=== PATIENT | female | born 1940 | race Two or more races ===

== ENCOUNTER → 2024-12-05 | Outpatient (CLI) | payer MEDICARE, MEDICAID, SELFPAY ==
--- NOTE | 2024-12-05 15:07 | XR_ITS ---
Examination: PA lateral chest 2 views TECHNIQUE: Upright PA lateral chest 2 views Exam date and time: December 05, 2024 1517 hours Comparison October 26, 2022 INDICATIONS: Coughing beginning 3 days ago FINDINGS: Retrocardiac gastric hernia Mild prominence left ventricle No lobar pneumonia Prominent osteopenia IMPRESSION: No lobar pneumonia
[2024-12-05 16:03] LABS: Basophils % (Auto) 0 % (0-2.5); Eosinophils # (Auto) 0.3 Thou/mm3 (0.0-0.5); Eosinophils % (Auto) 3 % (0-10); Hematocrit 33.9 % (36.0-46.0); Hemoglobin 11.6 g/dL (12.0-16.0); Immature Granulocytes % (Auto) 0 % (0-0); Immature Granulocytes Auto 0.03 Thou/mm3 (0.00-0.00); Lymphocytes # (Auto) 3.1 Thou/mm3 (1.0-4.8); Lymphocytes % (Auto) 31 % (10-50); Mean Corpuscular HGB Conc 34.2 g/dl (31.0-37.0); Mean Corpuscular Hemoglobin 31.7 pg (25.0-35.0); Mean Corpuscular Volume 93 fL (80-100); Monocytes # (Auto) 0.9 Thou/mm3 (0.0-0.8); Monocytes % (Auto) 9 % (0-12); Neutrophils # (Auto) 5.4 Thou/mm3 (1.8-7.7); Neutrophils % (Auto) 56 % (37-80); Nucleated Red Blood Cell % 0 /100 WBC (0); Platelet Count 146 Thou/mm3 (140-440); RDW Standard Deviation 57.1 fL (36.4-46.3); Red Blood Count 3.66 Miln/mm3 (4.00-5.20); White Blood Count 9.7 Thou/mm3 (3.6-11.0)
[2024-12-05 16:27] LABS: Alanine Aminotransferase 91 U/L (10-49); Albumin, Serum 3.7 gm/dL (3.4-4.8); Albumin/Globulin Ratio 1.3 (1.2-2.2); Alkaline Phosphatase 117 U/L (46-116); Anion Gap 11 (7-16); Aspartate Amino Transferase 145 U/L (0-34); BUN/Creatinine Ratio 24 Ratio (12-20); Bilirubin,Total 0.6 mg/dL (0.3-1.2); Blood Urea Nitrogen 48 mg/dL (9-23); Calcium 9.7 mg/dL (8.3-10.6); Calcium (Corrected) 9.9 mg/dL (8.5-10.1); Carbon Dioxide 26.9 mMol/L (20.0-31.0); Chloride 102 mMol/L (98-107); Globulin 2.9 gm/dL (2.3-3.5); Glucose 120 mg/dL (74-106); Osmolality,Calculated 293 (275-295); Sodium 140 mMol/L (136-145); Total Protein 6.6 gm/dL (5.7-8.2); eGFR 24 See Note
[2024-12-05 16:31] LABS: Ferritin 50 ng/mL (7.3-270.7); Iron 75 mcg/dL (50-170); Percent Iron Saturation 21 % (20-55); Total Iron Binding Capacity 352 mcg/dL (250-425); Unsaturated Iron Binding 277 (225-295)
[2024-12-05 16:35] LABS: B-Type Natriuretic Peptide 53 pg/mL (0-100)
[2024-12-05 17:05] LABS: Hepatitis A Antibody IgM Non Reactive (Non React); Hepatitis B Core Antibody IgM Non Reactive (Non React); Hepatitis B Surface Antigen Non Reactive (Non React); Hepatitis C Antibody Non Reactive (Non React)
== END | disposition home or self-care (01) ==
LOC: CDIM 14:57 → COPL 15:23
PROVIDERS: PCP Internal Medicine; Referring Provider Internal Medicine; Visit Provider Internal Medicine
DX: J06.9 Acute upper respiratory infection, unspecified (principal); R60.9 Edema, unspecified; D64.9 Anemia, unspecified; R74.01 Elevation of levels of liver transaminase levels
CPT/HCPCS: 36415; 71046; 80053; 80074; 82728; 83540; 83550; 83880; 85025

== ENCOUNTER → 2024-12-09 | Outpatient (CLI) | payer MEDICARE, MEDICAID, SELFPAY ==
--- NOTE | 2024-12-09 15:28 | XR_ITS ---
Examination: Abdomen sonogram, complete Date and time of exam: December 09, 2024 1606 hours INDICATIONS: Pancreatic head 3.5 cm on ultrasound 05/23/2024. Technique: Multiple real-time grayscale transabdominal sonographic images of the abdomen have been obtained. Findings: Pancreatic head 3.8 cm Cholelithiasis, no gallbladder wall edema Normal common bile duct Liver 17 cm lobular contour of fatty infiltration Normal hepatopedal portal venous flow Patent IVC Right kidney 8.5 cm in the cortex 1.2 cm Left kidney 8.5 cm renal cortex 1.5 cm Mild bilateral renal parenchymal scar formation Spleen 10.1 cm IMPRESSION: Pancreatic head measures 3.8 cm, suggest continued follow-up MRI abdomen pancreas pre and post contrast to compare with the July 10, 2024 exam
== END | disposition home or self-care (01) ==
LOC: SDIM 15:15
PROVIDERS: PCP Internal Medicine; Referring Provider Internal Medicine; Visit Provider Internal Medicine
DX: R93.2 Abnormal findings on diagnostic imaging of liver and biliary tract (principal)
CPT/HCPCS: 76700

== ENCOUNTER 2025-01-07 14:50 | Inpatient (IN) | payer MEDICARE, MEDICAID, SELFPAY ==
[2025-01-07 14:51] VITALS: BP 134/67; PULSE 69; RESP 18; TEMP 37.1; O2SAT 99; BMI 30.7
[2025-01-07 14:56] VITALS: BP 165/73; PULSE 71; RESP 24; TEMP 36.6; O2SAT 99
--- NOTE | 2025-01-07 15:13 | EKG_ITS ---
[facility] Test Date: 2025-01-07 Pat Name: ASIYA LANG Department: Room: - Gender: Female Geometry Tutor: : 1940 Requested By: Michelle Baumann Order Number: [id number] Reading MD: Michelle Baumann Measurements Intervals [place] Rate: 60 P: 38 [place]: 177 QRS: 37 QRSD: 144 T: 15 QT: 448 QTc: 451 Interpretive Statements SINUS RHYTHM INDETERMINATE AXIS RIGHT BUNDLE BRANCH BLOCK [120+ ms QRS DURATION, UPRIGHT V1, 40+ ms S IN I/aVL/V4/V5/V6] Compared to ECG 03/13/2019 09:09:35 Indeterminate axis now present Sinus bradycardia no longer present /store/S0/[id number]
--- NOTE | 2025-01-07 15:13 | XR_ITS ---
Examination: PA lateral chest 2 views TECHNIQUE: Upright PA lateral chest 2 views Exam date and time: January 07, 2025 1544 hours INDICATIONS: Chest pain today shortness of breath FINDINGS: No significant cardiac enlargement Retrocardiac gastric hernia Moderate vascular congestion No lobar pneumonia or alexandru pulmonary edema IMPRESSION: Moderate vascular congestion
--- NOTE | 2025-01-07 15:13 | PD.EDRME ---
Rapid Medical Screening Exam RME Arrival date/time: 01/07/25 14:50 84-year-old that comes from the support with complaints of chest pain and shortness of breath. Patient has a history of chronic kidney disease, CVA, diabetes, patient comes in today with complaints of shortness of breath and bilateral leg edema. patient was sent because she has crackles lung bases.. I have greeted and performed a focused initial assessment of this patient. Initial appropriate labs ordered at this time. A comprehensive ED assessment and evaluation of the patient and analysis of all test and completion of medical decision making process will be conducted by additional ED provider. Chief Complaint: Shortness of Breath/Dyspnea Time Seen by Provider: 01/07/25 14:58 Vital signs: Vital Signs Temperature 98.7 F 01/07/25 14:51 Pulse Rate 69 01/07/25 14:51 Respiratory Rate 18 01/07/25 14:51 Blood Pressure 134/67 H 01/07/25 14:51 Pulse Oximetry (%) 99 01/07/25 14:51 Oxygen Delivery Method Room Air 01/07/25 14:51
[2025-01-07 16:13] LABS: Basophils % (Auto) 1 % (0-2.5); Eosinophils # (Auto) 0.1 Thou/mm3 (0.0-0.5); Eosinophils % (Auto) 2 % (0-10); Hematocrit 35.4 % (36.0-46.0); Hemoglobin 12.1 g/dL (12.0-16.0); Immature Granulocytes % (Auto) 0 % (0-0); Immature Granulocytes Auto 0.01 Thou/mm3 (0.00-0.00); Lymphocytes # (Auto) 2.1 Thou/mm3 (1.0-4.8); Lymphocytes % (Auto) 32 % (10-50); Mean Corpuscular HGB Conc 34.2 g/dl (31.0-37.0); Mean Corpuscular Volume 94 fL (80-100); Monocytes # (Auto) 0.7 Thou/mm3 (0.0-0.8); Monocytes % (Auto) 11 % (0-12); Neutrophils # (Auto) 3.6 Thou/mm3 (1.8-7.7); Neutrophils % (Auto) 55 % (37-80); Nucleated Red Blood Cell % 0 /100 WBC (0); Platelet Count 152 Thou/mm3 (140-440); RDW Standard Deviation 56.6 fL (36.4-46.3); Red Blood Count 3.78 Miln/mm3 (4.00-5.20); White Blood Count 6.5 Thou/mm3 (3.6-11.0)
[2025-01-07 16:13] LABS: Collection Type, Urine Voided
[2025-01-07 16:35] LABS: Bilirubin,Urine Negative (Negative); Blood,Urine Negative (Negative); Clarity,Urine Clear (Clear/Hazy); Color,Urine Lt-Yellow (Lt Yel-Yel); Culture Indicated,Urine Not Indicated; Glucose, Urine 3+ (Negative); Ketones,Urine Negative (Negative); Leukocyte Esterase,Urine Negative (Negative); Nitrite,Urine Negative (Negative); Protein,Urine Negative (Neg - Trace); RBC,Urine < 1 /hpf (0-3); Squamous Epithelial Cell,Urine 1 /hpf (0-5); Urobilinogen,Urine Negative mg/dL (0.0-1.0); WBC,Urine 1 /hpf (0-5)
[2025-01-07 16:36] LABS: B-Type Natriuretic Peptide 41 pg/mL (0-100)
[2025-01-07 16:37] LABS: Alanine Aminotransferase 85 U/L (10-49); Albumin, Serum 4.1 gm/dL (3.4-4.8); Albumin/Globulin Ratio 1.2 (1.2-2.2); Alkaline Phosphatase 123 U/L (46-116); Anion Gap 11 (7-16); Aspartate Amino Transferase 138 U/L (0-34); BUN/Creatinine Ratio 28 Ratio (12-20); Bilirubin,Total 0.7 mg/dL (0.3-1.2); Blood Urea Nitrogen 58 mg/dL (9-23); Calcium 9.6 mg/dL (8.3-10.6); Calcium (Corrected) 9.6 mg/dL (8.5-10.1); Carbon Dioxide 23.9 mMol/L (20.0-31.0); Chloride 104 mMol/L (98-107); Creatinine (Component) 2.1 mg/dL (0.6-1.3); Estimated Creatinine Clearance 19.7 mL/min (>60); Globulin 3.3 gm/dL (2.3-3.5); Glucose 166 mg/dL (74-106); Osmolality,Calculated 297 (275-295); Potassium 3.8 mMol/L (3.4-5.1); Sodium 139 mMol/L (136-145); Total Protein 7.4 gm/dL (5.7-8.2); Troponin I < 0.020 ng/mL (0.0-0.045); eGFR 23 See Note
[2025-01-07 19:20] VITALS: BP 137/68; PULSE 61; RESP 20; TEMP 36.6; O2SAT 98
--- NOTE | 2025-01-07 20:35 | PD.EDADULT ---
ED General RME/HPI General Chief complaint: Shortness of Breath/Dyspnea Stated complaint: SOB AND DIFF. BREATHING SENT BY PMD Time Seen by Provider: 01/07/25 14:58 Arrival date/time: 01/07/25 14:50 CC: Chronic shortness of breath CKD and lower extremity edema. Patient was referred by her PCP because of her lower leg edema. RME / HPI RME / HPI narrative: 01/07/25 14:50 84-year-old that comes from the support with complaints of chest pain and shortness of breath. Patient has a history of chronic kidney disease, CVA, diabetes, patient comes in today with complaints of shortness of breath and bilateral leg edema. patient was sent because she has crackles lung bases.. I have greeted and performed a focused initial assessment of this patient. Initial appropriate labs ordered at this time. A comprehensive ED assessment and evaluation of the patient and analysis of all test and completion of medical decision making process will be conducted by additional ED provider. Related Data Home Medications ?Medication ?Instructions ?Recorded ?Confirmed alendronate 70 mg effervescent 70 mg PO QWEEK 02/21/18 04/09/21 tablet amlodipine 10 mg tablet 10 mg PO QDAY 02/21/18 04/09/21 pantoprazole 40 mg tablet,delayed 40 mg PO QDAY 02/21/18 04/09/21 release aspirin 325 mg tablet,delayed 325 mg PO QDAY 06/25/18 04/09/21 release simvastatin 40 mg tablet 1 tab PO HS 06/25/18 04/09/21 linagliptin 5 mg tablet (Tradjenta) 5 mg PO QDAY 03/13/19 04/09/21 allopurinol 100 mg tablet 100 mg PO QDAY 04/09/21 04/09/21 calcifediol 30 mcg capsule,24 30 mcg PO QDAY 04/09/21 04/09/21 hr,extended release (Rayaldee) hydralazine 50 mg tablet 50 mg PO TID 04/09/21 04/09/21 insulin human U-100 NPH-regulr 32 unit subcut QMORNING 04/09/21 04/09/21 70-30 mix 100 unit/mL subcutaneous susp (Novolin 70/30 U-100 Insulin) lisinopril 10 mg tablet 10 mg PO QDAY 04/09/21 04/09/21 Allergies Allergy/AdvReac Type Severity Reaction Status Date / Time No Known Allergies Allergy Verified 01/07/25 14:54 Course Course Course Narrative: Patient has a steadily rising BUN and creatinine, with moderate vascular congestion and concerned about giving her diuretics for her shortness of breath while still having the renal impairment. Patient's case discussed with Dr. William Peters, Dr. Mina who came down and assessed the patient in the emergency room and agreed accept the patient for admission. Patient is in agreement with this plan Quality Measures none Orders Category Date Time Status EKG (ED ONLY) *Do not use* NOW Care 01/07/25 15:13 Completed EKG (ED Only) Stat Exams 01/07/25 15:13 Draft XR chest 2V Stat Exams 01/07/25 15:13 Completed BNP [B-Type Natriuretic Peptide] Stat Lab 01/07/25 15:51 Completed CBC Stat Lab 01/07/25 15:51 Completed Comprehensive Metabolic Panel Stat Lab 01/07/25 15:51 Completed Troponin I Stat Lab 01/07/25 15:51 Completed Urinalysis, C/S if Indicated Stat Lab 01/07/25 16:01 Completed Vital Signs Vital signs: Vital Signs Temperature 98.7 F 01/07/25 14:51 Pulse Rate 69 01/07/25 14:51 Respiratory Rate 18 01/07/25 14:51 Blood Pressure 134/67 H 01/07/25 14:51 Pulse Oximetry (%) 99 01/07/25 14:51 Oxygen Delivery Method Room Air 01/07/25 14:51 Discharge Plan Plan Patient Disposition: Other Care w/in Hosp ([facility]) Patient condition on transfer: Stable Prescriptions/Referrals Prescriptions/Med Rec: No Action amlodipine 10 mg Tablet 10 mg PO QDAY pantoprazole 40 mg Tablet,Delayed Release (Dr/Ec) 40 mg PO QDAY alendronate 70 mg Tablet, Effervescent 70 mg PO QWEEK hydralazine 50 mg tablet 50 mg PO TID lisinopril 10 mg tablet 10 mg PO QDAY Rayaldee 30 mcg capsule,extended release 24 hr 30 mcg PO QDAY allopurinol 100 mg tablet 100 mg PO QDAY Novolin 70/30 U-100 Insulin 100 unit/mL (70-30) suspension 32 unit SUBCUT QMORNING Patient Comments: inject 32 units subcutaneously twice a day simvastatin 40 mg Tablet 1 tab PO HS aspirin 325 mg Tablet,Delayed Release (Dr/Ec) 325 mg PO QDAY Tradjenta 5 mg Tablet 5 mg PO QDAY Referrals: Bina Ames MD [Primary Care Provider] - In 1 week Problem List Clinical Impression: Breath shortness, MORTEZA (acute kidney injury) Patient/Caregiver Discharge Instructions Print Language: Spanish Stand Alone Forms: Trudi Award Info., Patient Portal Info Letter PA/TOPPIECE CUTTER Supervising Physician PA/TOPPIECE CUTTER Supervising Physician: Bayron Whitney ENP [facility] Labs Lab(s) Interpretation(s): CBC shows no acute leukocytosis H&H of 12.1 and 35.4 respectively no thrombocytopenia CMP shows no electrolyte imbalances BUN 58 creatinine 2.1 glucose of 166. T. bili at 0.7 Transaminitis's are mildly elevated. Troponin is negative BNP is negative Urine is 3+ glucose otherwise negative for any acute finding. Imaging Imaging Interpretation(s): Chest x-ray shows moderate vascular congestion.
--- NOTE | 2025-01-07 21:12 | PD.RESHP ---
Documentation for date of: 01/07/25 HPI History of Present Illness History of present illness: Patient is a 84 year old female with PMH of CVA, DM2, HTN who was referred to the ER by her PCP for shortness of breath. Patient endores SOB since COVID started in November 2019. Dyspnea is worse on exertion and limits the distance she can walk. Associated with bilateral lower extremity swelling which started around the same time, and pleuritic chest pain. Endorses some cough with yellow sputum in the morning. Endorses chronic stress incontinence. Denies fever, nausea, vomiting, stomach pain, diarrhea, constipation. Patient saw her prior authorization nurse Dr. Morales 1 month ago and was told her kidney function was doing okay. Patient saw her PCP Dr. Glass today and was recommended to go the ER for her shortness of breath. PMH: CVA, DM2, HTN PSH: total hysterectomy, bilateral knee repair SH: denies smoking, illicit drug use, alcohol use. Uses walker at baseline. PCP: Dr. Glass Grievance And Appeals Coordinator: Dr. Morales Presenting vitals stable. Patient able to talk in full sentences without acute distress though she does look short of breath. She is saturating on room air. Labs significant for elevated creatinine at 2.1 which is double of her previous level from May. UA shows glucosuria. CXR shows moderate vascular congestion. EKG shows sinus rhythm. Review of Systems Review of Systems Systems Reviewed: All systems reviewed, normal except as documented Exam Vital Signs Temp Pulse Resp BP Pulse Ox O2 Del Method 97.8 F 61 20 137/68 H 98 Room Air 01/07/25 19:20 01/07/25 19:20 01/07/25 19:20 01/07/25 19:20 01/07/25 19:20 01/07/25 19:20 Narrative Exam Constitutional: Pleasant elderly female, no acute distress. HEENT: NCAT. Vision grossly intact. Respiratory: CTAB bilaterally. No rales, ronchi, wheezing, crackles appreciated. Good airway entry bilaterally. Cardiac: RRR. Abdomen: Non-distended. MSK: B/L LE Edema 2-3+ Skin: Warm, dry, intact. Neuro: Motor and sensation grossly intact. Results: Labs 01/07/25 15:51 01/07/25 15:51 Labs: Short CBC 01/07/25 Range/Units 15:51 WBC 6.5 (3.6-11.0) Thou/mm3 Hgb 12.1 (12.0-16.0) g/dL Hct 35.4 L (36.0-46.0) % Plt Count 152 (140-440) Thou/mm3 BMP 01/07/25 15:51 Sodium 139 Potassium 3.8 Chloride 104 Carbon Dioxide 23.9 BUN 58 H Creatinine 2.1 H Glucose 166 H Calcium 9.6 Cardiac Enzymes 01/07/25 Range/Units 15:51 Troponin I < 0.020 (0.0-0.045) ng/mL Liver Function 01/07/25 Range/Units 15:51 Total Bilirubin 0.7 (0.3-1.2) mg/dL AST 138 H (0-34) U/L ALT 85 H (10-49) U/L Alkaline Phosphatase 123 H (46-116) U/L Albumin 4.1 (3.4-4.8) gm/dL Urine 01/07/25 Range/Units 16:01 Urine Color Lt-Yellow (Lt Yel-Yel) Urine Clarity Clear (Clear/Hazy) Urine pH 7.0 (5.0-7.0) Ur Specific [place] 1.010 (1.001-1.035) Urine Protein Negative (Neg - Trace) Urine Glucose (UA) 3+ A (Negative) Quality Measures Quality Measures none Advance care planning discussed with:: patient Medications Home Medications and Allergies Home Medications ?Medication ?Instructions ?Recorded ?Confirmed ?Type alendronate 70 mg effervescent 70 mg PO QWEEK 02/21/18 04/09/21 History tablet amlodipine 10 mg tablet 10 mg PO QDAY 02/21/18 04/09/21 History pantoprazole 40 mg tablet,delayed 40 mg PO QDAY 02/21/18 04/09/21 History release aspirin 325 mg tablet,delayed 325 mg PO QDAY 06/25/18 04/09/21 History release simvastatin 40 mg tablet 1 tab PO HS 06/25/18 04/09/21 History linagliptin 5 mg tablet (Tradjenta) 5 mg PO QDAY 03/13/19 04/09/21 History allopurinol 100 mg tablet 100 mg PO QDAY 04/09/21 04/09/21 History calcifediol 30 mcg capsule,24 30 mcg PO QDAY 04/09/21 04/09/21 History hr,extended release (Rayaldee) hydralazine 50 mg tablet 50 mg PO TID 04/09/21 04/09/21 History insulin human U-100 NPH-regulr 32 unit subcut QMORNING 04/09/21 04/09/21 History 70-30 mix 100 unit/mL subcutaneous susp (Novolin 70/30 U-100 Insulin) lisinopril 10 mg tablet 10 mg PO QDAY 04/09/21 04/09/21 History Allergies Allergy/AdvReac Type Severity Reaction Status Date / Time No Known Allergies Allergy Verified 01/07/25 14:54 Visit Medications Acetaminophen (Acetaminophen 325 Mg Tablet) 650 mg PO Q6H PRN PRN Reason: Fever >100.4 or pain 1-3 Stop: 02/06/25 21:02 Atorvastatin Calcium (Atorvastatin Calcium 10 Mg Tablet) 80 mg PO HS ASIM Stop: 02/07/25 20:59 Dextrose (Dextrose 50%-Water Inj 50 Ml Syringe) 25 ml IV Q15MIN PRN PRN Reason: BG 50-70 responsive npo pt Stop: 02/06/25 21:07 Dextrose (Dextrose 50%-Water Inj 50 Ml Syringe) 50 ml IV Q15MIN PRN PRN Reason: BG <50 OR BG <70 & pt unresponsive Stop: 02/06/25 21:07 Furosemide (Furosemide Inj 10 Mg/Ml 4ml Vial) 40 mg IVP X1 ONE Stop: 01/07/25 21:08 Glucagon (Glucagon Inj 1 Mg Vial) 1 mg IM Q15MIN PRN PRN Reason: BG <70, and no IV access Heparin Sodium (Porcine) (Heparin Sod Inj 5000 Unit/Ml Vial) 5,000 unit SC BID ASIM Stop: 01/22/25 08:59 Insulin Human Lispro (Insulin Lispro (Admelog) 1 Unit/0.01 Ml Unit) 0 unit SC AC ASIM; Protocol Stop: 02/07/25 07:29 Ondansetron HCl (Ondansetron Inj 2 Mg/Ml Inj 2 Ml) 4 mg IV Q6H PRN; Protocol PRN Reason: NAUSEA OR VOMITING Stop: 02/06/25 21:02 Assessment & Plan Plan Patient is a 84 year old female with PMH of CVA, DM2, HTN who was referred to the ER by her PCP for shortness of breath. #Anasarca Patient appears volume overloaded, b/l pitting edema, shortness of breath however BNP normal and saturating on room air Echo ordered Trial Lasix 40mg #MORTEZA versus CKD Abdominal ultrasound 11/2024 show mild bilateral renal parenchymal scar formation Suspect pre-renal in the setting of anasarca, trial Lasix - Avoid nephrotoxins - Lasix trial - Grievance And Appeals Coordinator Dr. Morales consulted - Urine studies ordered #History of DM2 - new A1c ordered - Med recc pending - ISS #History of CVA #History HTN - Restart home statin - Restart home meds pending med recc - Hold any MIL/ARB or nephrotoxins Health Maintenance Disposition: Admit to medsirg for MORTEZA on CKD, anasarca Diet and fluids: renal/carb consistent, fluid restrict 1800 DVT prophylaxis: heparin GI prophylaxis: none indicated Lines: none at the time of evaluation CODE STATUS: FULL I have reviewed and discussed the patient's care with my attending, Dr. Keeley Rodriguez MD PGY-3 Attending Provider Attestation/Addendum I attest that I was physically present for the evaluation, physical examination, lab and imaging review of the patient with the residents. I discussed the case with the residents and agree with the findings and plans of care as documented above. Patient is an 84 years old female with past medical history of CVA, diabetes, hypertension who was sent to the ED by her PCP when she was found to have shortness of breath and crackles on exam. Patient has been having dyspnea on exertion and bilateral lower extremity swelling for some time. She has been following with her prior authorization nurse for CKD. In the ED, her vitals are within normal limits, saturating well on room air. Chest x-ray was obtained, which shows moderate vascular congestion. Lab results are significant for elevated BUN/creatinine of 58/2.1. Her BUN/creatinine on 05/17/2024 was 31/1.3. We will admit the patient on observation for management of anasarca, concern for MORTEZA on CKD versus progression of CKD. We will start her on IV diuresis, obtain echocardiogram and obtain nephrology consult. We will start her on insulin regimen for diabetes. Will resume her home medication for hypertension and CVA Marcia Mina MD
[2025-01-07 21:55] VITALS: BP 154/74; PULSE 68; RESP 18; TEMP 37.1; O2SAT 97
[2025-01-07 22:20] VITALS: BP 154/74; PULSE 73
[2025-01-07] MEDS: FUROSEMIDE INJ 10 MG/ML 4ML VIAL 40 MG IVP (22:20)
[2025-01-07 23:20] VITALS: BMI 32.5
[2025-01-08] VITALS: BP 128/57; PULSE 64; RESP 18; TEMP 37.1; O2SAT 96
[2025-01-08 04:00] VITALS: BP 125/53; PULSE 61; RESP 18; TEMP 37; O2SAT 98
[2025-01-08 04:18] LABS: Protein Total, Random Urine < 6 mg/dL (1-14)
[2025-01-08 04:20] LABS: Creatinine,Random Urine 18 mg/dL (30-125)
[2025-01-08 06:15] LABS: Basophils % (Auto) 0 % (0-2.5); Eosinophils # (Auto) 0.2 Thou/mm3 (0.0-0.5); Eosinophils % (Auto) 3 % (0-10); Hematocrit 33.5 % (36.0-46.0); Hemoglobin 11.8 g/dL (12.0-16.0); Immature Granulocytes % (Auto) 0 % (0-0); Immature Granulocytes Auto 0.02 Thou/mm3 (0.00-0.00); Lymphocytes # (Auto) 2.3 Thou/mm3 (1.0-4.8); Lymphocytes % (Auto) 31 % (10-50); Mean Corpuscular HGB Conc 35.2 g/dl (31.0-37.0); Mean Corpuscular Hemoglobin 31.7 pg (25.0-35.0); Mean Corpuscular Volume 90 fL (80-100); Monocytes # (Auto) 0.9 Thou/mm3 (0.0-0.8); Monocytes % (Auto) 12 % (0-12); Neutrophils # (Auto) 3.8 Thou/mm3 (1.8-7.7); Neutrophils % (Auto) 53 % (37-80); Nucleated Red Blood Cell % 0 /100 WBC (0); Platelet Count 152 Thou/mm3 (140-440); RDW Standard Deviation 52.8 fL (36.4-46.3); Red Blood Count 3.72 Miln/mm3 (4.00-5.20); White Blood Count 7.2 Thou/mm3 (3.6-11.0)
[2025-01-08 06:25] LABS: INR 1.2 (0.9-1.3)
[2025-01-08 06:38] LABS: Anion Gap 12 (7-16); BUN/Creatinine Ratio 32 Ratio (12-20); Blood Urea Nitrogen 61 mg/dL (9-23); Calcium 9.6 mg/dL (8.3-10.6); Carbon Dioxide 24.3 mMol/L (20.0-31.0); Chloride 107 mMol/L (98-107); Creatinine (Component) 1.9 mg/dL (0.6-1.3); Estimated Creatinine Clearance 21.6 mL/min (>60); Glucose 116 mg/dL (74-106); Magnesium 1.9 mg/dL (1.6-2.6); Osmolality,Calculated 303 (275-295); Potassium 3.9 mMol/L (3.4-5.1); Sodium 143 mMol/L (136-145); Thyroid Stimulating Hormone 2.29 uIU/mL (0.55-4.78); eGFR 26 See Note
[2025-01-08 06:41] LABS: Glucose Estimated Average 140 mg/dL (80-131); Hemoglobin A1C 6.5 % Hgb (4.8-6.0)
[2025-01-08 07:48] VITALS: BP 103/55; PULSE 71; RESP 19; TEMP 37.2; O2SAT 95
[2025-01-08] MEDS: INSULIN LISPRO (AdmeLOG) 1 UNIT/0.01 ML UNIT SC ×2 (08:24→12:24)
[2025-01-08] MEDS: HEPARIN SOD INJ 5000 UNIT/ML VIAL SC ×2 (08:33→20:50)
--- NOTE | 2025-01-08 09:36 | PC.SS ---
Follow up note: IV Lasix, IV fluids, and ECHO pending. Dr. Morales is the nepharologist.
[2025-01-08 12:00] VITALS: BP 119/52; PULSE 62; RESP 18; TEMP 36.2; O2SAT 92
--- NOTE | 2025-01-08 12:03 | XR_ITS ---
Examination: Duplex scan of the lower extremity, unilateral left complete Date and time of exam: December 12, 2024 1314 hours INDICATIONS: Left leg pain and swelling beginning 3 months ago Technique: Duplex scan of the extremity veins using B-mode/grayscale imaging and Doppler spectral analysis and color flow Attention is directed to internal echogenicity, compression and augmentation involving these veins, color flow assessment, spectral analysis Findings: Major deep venous structures in the extremity demonstrate normal course and caliber. There is no evidence of deep vein thrombosis. Normal color flow and spectral analysis Impression: Negative for DVT..
[2025-01-08 12:17] VITALS: BMI 32.5
--- NOTE | 2025-01-08 12:22 | PC.SS ---
SS spoke to dtrKristie with patient regarding d/c plan.? Pt is alert/oriented.? Pt was admitted for MORTEZA on CKD.? Pt confirmed demographic and contact information is correct on facesheet.? SS called pt Danay from patient registration to update patient's facesheet with the correct daughter's, Kristie Dempsey phone# [phone].? Pt resides with her dtr, Kristie Dempsey.? Pt ambulates using a 4 wheel with seat, rollator walker and a cane.? Pt is ok with all ADLs.? Per dtrKristie she is patient's medical decision maker if she is unable.? SS provided dtr with verbal options for d/c to home or SNF.? Daughter's choice is for pt to return home upon d/c.? Per dtr, pt followed up with PCP yesterday, Monday. D/C plan:? Return home Next of Kin:? Kristie Dempsey, daughter, phone# [phone] PCP:? Dr. Bina Ames Address:? Correct on facesheet
--- NOTE | 2025-01-08 12:37 | EKG_ITS ---
[facility] Test Date: 2025-01-08 Pat Name: ASIYA LANG [facility] Gender[facility] Female Data Processing Mechanic: DEE DEE : 1940 Requested By: Dennis Holland Order Number: [id number] Reading MD: Dennis Holland Measurements Intervals [place] Rate: 59 P: 41 NV: 200 QRS: 44 QRSD: 156 T: -11 QT: 464 QTc: 462 Interpretive Statements SINUS BRADYCARDIA RIGHT BUNDLE BRANCH BLOCK Compared to ECG 01/07/2025 15:14:10 Sinus rhythm no longer present Indeterminate axis no longer present /store/S0/[id number]/[id number]
[2025-01-08 13:45] LABS: Troponin I < 0.020 ng/mL (0.0-0.045)
--- NOTE | 2025-01-08 15:30 | ESPR_ITS ---
Documentation for date of: 01/08/25 Subjective Subjective Interval history: Patient examined at bedside. She complains of extreme tenderness and pain to palpation in the left lower extremity. Appears to be short of breath during conversation. Oxygen saturations have remained stable. Lower extremity swelling has improved with Lasix trial. Net fluid balance past 24 hours -500. Patient also had started complaining of some chest pain in the afternoon. Repeat troponins were negative. Venous Doppler ultrasound left lower extremity negative for DVT. Chest pain is reproducible. Most likely MSK versus cardiac etiology. Vitals are stable, MORTEZA improved with creatinine 1.9. Slight transaminitis AST 138, ALT 85. Physical exam benign for any abdominal pain. Dr Moralse was consulted and recommends patient to continue Lasix 40 mg daily. Continue monitoring urine output. Echo pending as part of workup for causes of shortness of breath and fluid overload status. Exam Vital Signs Temp Pulse Resp BP Pulse Ox O2 Del Method 97.1 F 62 18 119/52 L 92 L Room Air 01/08/25 12:00 01/08/25 12:01/08/25 12:00 01/08/25 12:00 01/08/25 12:01/08/25 12:00 Narrative Exam Constitutional: Pleasant elderly female, cooperative, appears to be short of breath while conversing. HEENT: NCAT. Mucous membranes moist, normal pupillary reflex. Respiratory: CTAB bilaterally. No rales, ronchi, wheezing, crackles appreciated. Good airway entry bilaterally. Cardiac: RRR. Abdomen: Non-distended. Nontender, normal bowel sounds. MSK: Able to move all 4 extremities. Retracts left lower extremity due to pain from slight palpation. Homans test negative. Swelling has improved, no pitting edema. No erythema. Skin: Warm, dry, intact. Neuro: Motor and sensation grossly intact. Objective Labs 01/09/25 04:45 01/09/25 04:45 Labs: Laboratory Results - last 24 hr 01/07/25 01/07/25 01/08/25 15:51 16:01 03:00 WBC 6.5 RBC 3.78 L Hgb 12.1 Hct 35.4 L MCV 94 MCH 32.0 MCHC 34.2 RDW Std Deviation 56.6 H Plt Count 152 Neut % (Auto) 55 Lymph % (Auto) 32 [place] % (Auto) 11 Eos % (Auto) 2 Baso % (Auto) 1 Neut # (Auto) 3.6 Lymph # (Auto) 2.1 [place] # (Auto) 0.7 Eos # (Auto) 0.1 Baso # (Auto) 0.0 Immature Gran # (Auto) 0.01 H Absolute Nucleated RBC 0.00 Immature Gran % 0 Nucleated RBC % 0 PT INR Sodium 139 Potassium 3.8 Chloride 104 Carbon Dioxide 23.9 Anion Gap 11 BUN 58 H Creatinine 2.1 H Estim Creat Clear Calc 19.7 L eGFR 23 L BUN/Creatinine Ratio 28 H Glucose [address] Glu mg/dL Hemoglobin A1c Calculated Osmolality 297 H Calcium 9.6 Corrected Calcium 9.6 Magnesium Total Bilirubin 0.7 AST 138 H ALT 85 H Alkaline Phosphatase 123 H Troponin I < 0.020 B-Natriuretic Peptide 41 Total Protein 7.4 Albumin 4.1 Globulin 3.3 Albumin/Globulin Ratio 1.2 TSH Ur Collection Type Voided Urine Color Lt-Yellow Urine Clarity Clear Urine pH 7.0 Ur Specific [place] 1.010 Urine Protein Negative Urine Glucose (UA) 3+ A Urine Ketones Negative Urine Blood Negative Urine Nitrite Negative Urine Bilirubin Negative Urine Urobilinogen (Auto) Negative Ur Leukocyte Esterase Negative Urine RBC < 1 Urine WBC 1 Ur Squamous Epith Cells 1 Urine Bacteria None Ur Culture Indicated? Not Indicated Ur Random Creatinine 18 L U Random Total Protein < 6 Ur Random Sodium 125.0 H 01/08/25 01/08/25 04:55 12:58 WBC 7.2 RBC 3.72 L Hgb 11.8 L Hct 33.5 L MCV 90 MCH 31.7 MCHC 35.2 RDW Std Deviation 52.8 H Plt Count 152 Neut % (Auto) 53 Lymph % (Auto) 31 [place] % (Auto) 12 Eos % (Auto) 3 Baso % (Auto) 0 Neut # (Auto) 3.8 Lymph # (Auto) 2.3 [place] # (Auto) 0.9 H Eos # (Auto) 0.2 Baso # (Auto) 0.0 Immature Gran # (Auto) 0.02 H Absolute Nucleated RBC 0.00 Immature Gran % 0 Nucleated RBC % 0 PT 13.0 H INR 1.2 Sodium 143 Potassium 3.9 Chloride 107 Carbon Dioxide 24.3 Anion Gap 12 BUN 61 H Creatinine 1.9 H Estim Creat Clear Calc 21.6 L eGFR 26 L BUN/Creatinine Ratio 32 H Glucose [address] Glu mg/dL 140 H Hemoglobin A1c 6.5 H Calculated Osmolality 303 H Calcium 9.6 Corrected Calcium Magnesium 1.9 Total Bilirubin AST ALT Alkaline Phosphatase Troponin I < 0.020 B-Natriuretic Peptide Total Protein Albumin Globulin Albumin/Globulin Ratio TSH 2.29 Ur Collection Type Urine Color Urine Clarity Urine pH Ur Specific [place] Urine Protein Urine Glucose (UA) Urine Ketones Urine Blood Urine Nitrite Urine Bilirubin Urine Urobilinogen (Auto) Ur Leukocyte Esterase Urine RBC Urine WBC Ur Squamous Epith Cells Urine Bacteria Ur Culture Indicated? Ur Random Creatinine U Random Total Protein Ur Random Sodium Quality Measures Quality Measures none Advance care planning discussed with:: patient Assessment & Plan Assessment Current Active Medications: Generic Name Dose Route Start Last Admin Trade Name Freq PRN Reason Stop Dose Admin Acetaminophen 650 mg 01/07/25 21:03 Acetaminophen 325 Mg Tablet PO 02/06/25 21:02 Q6H PRN Fever >100.4 or pain 1-3 Atorvastatin Calcium 80 mg 01/08/25 21:00 Atorvastatin Calcium 10 Mg Tablet PO 02/07/25 20:59 HS ASIM Dextrose 25 ml 01/07/25 21:08 Dextrose 50%-Water Inj 50 Ml Syringe IV 02/06/25 21:07 Q15MIN PRN BG 50-70 responsive npo pt Dextrose 50 ml 01/07/25 21:08 Dextrose 50%-Water Inj 50 Ml Syringe IV 02/06/25 21:07 Q15MIN PRN BG <50 OR BG <70 & pt unresponsive Glucagon 1 mg 01/07/25 21:08 Glucagon Inj 1 Mg Vial IM Q15MIN PRN BG <70, and no IV access Heparin Sodium (Porcine) 5,000 unit 01/08/25 09:00 01/08/25 08:33 Heparin Sod Inj 5000 Unit/Ml Vial SC 01/22/25 08:59 5,000 unit BID ASIM Administration Insulin Human Lispro 0 unit 01/08/25 07:30 01/08/25 12:24 Insulin Lispro (Admelog) 1 Unit/0.01 Ml Unit SC 02/07/25 07:29 2 unit AC ASIM Administration Protocol Ondansetron HCl 4 mg 01/07/25 21:03 Ondansetron Inj 2 Mg/Ml Inj 2 Ml IV 02/06/25 21:02 Q6H PRN NAUSEA OR VOMITING Protocol Plan Patient is a 84 year old female with PMH of CVA, DM2, HTN who was referred to the ER by her PCP for shortness of breath. #Anasarca?resolved Patient appears volume overloaded, b/l pitting edema, shortness of breath however BNP normal and saturating on room air Responded well with Lasix trial. Currently at net negative fluid balance. ?Echo pending ?Continue Lasix 40 mg daily ? Monitor LATASHA's ? 1500 cc restriction #MORTEZA (improving) versus CKD Abdominal ultrasound 11/2024 show mild bilateral renal parenchymal scar formation Suspect pre-renal in the setting of anasarca. Creatinine down trended from 2.1- 1.9 after Lasix trial. Supporting cause of fluid overload status. - Avoid nephrotoxins - Instrumentation Designer Dr. Morales consulted. Recs: Continue Lasix 40 mg daily # Insulin-dependent type 2 diabetes, well-controlled Glucose 166 on admission. A1c from 06/04 was 7.0. A1c on this admission 6.5. ?Hold home medications ? Sliding scale insulin ? ACHS glucose checks #History of CVA #History HTN - Restart home statin - Restart home meds pending med recc - Hold any MIL/ARB or nephrotoxins Health Maintenance Disposition: medsurg for MORTEZA on CKD, anasarca Diet and fluids: renal/carb consistent, fluid restrict 1800 DVT prophylaxis: heparin GI prophylaxis: none indicated CODE STATUS: FULL The patient's management plan was discussed with my attending physician Dr. Thomason. Alena Lorenzana, PGY-1 LI discussed with and supervised the architect internship physician who took care of this patient. I personally saw and examined the patient and discussed the assessment and plan with the entire medicine team, including my attending Dr. Katelin SAN. I agree with the assessment and plan as documented above. Patient interviewed and examined at bedside this a.m. Patient was admitted overnight due to a chief complaint of shortness of breath for which he presented to the ED and was found to have an acute kidney injury. Initially the patient had appeared extremely volume overloaded with bilateral lower extremity anasarca. She was given a dose of Lasix 40 mg IV which vastly improved her symptoms with good urine output. The patient is currently followed by Dr Morales her tire cord weaver who we have consulted. On exam the patient appears much improved than the description of her initial presentation, with no lower extremity edema noted. Her left lower extremity however is extremely painful to minimal palpation. For this, a Doppler ultrasound was ordered which was negative for DVT. During the day she also complained of some chest pain for which an EKG and troponin were ordered which were negative for any ST segment elevation. Most likely attributable to musculoskeletal etiology. Her MORTEZA is resolving. On labs, her LFTs are slightly elevated, will continue to trend with daily CMP. Echo currently pending. Carlos Alberto Valdez M.D. Internal Medicine PGY-3 Attending Provider Attestation/Addendum I have examined the patient, reviewed labs and imaging findings, discussed the case with the resident(s), and reviewed entered orders. I agree with the plan of care as outlined in this note, with these additional summaries/recommendations: Patient seen at bedside. She reports improvement in bilateral lower extremity edema. Etiology for edema is CHF versus renal disease versus least likely dependent edema. We will continue IV diuresis and pending echocardiogram. Patient noted to have MORTEZA on CKD on admission. Creatinine 2.1 and BUN 58 which improved to 1.9 with IV diuresis. Consult nephrology, recommendations appreciated. CKD likely secondary to underlying diabetic nephropathy. Diabetes mellitus type 2 currently well-controlled. A1c 6.5%. Continue to optimize blood pressure regimen and resume home medications. Dr. Katelin MD
[2025-01-08 16:00] VITALS: BP 114/50; PULSE 57; RESP 17; TEMP 36.4; O2SAT 96
[2025-01-08 20:00] VITALS: BP 125/58; PULSE 69; RESP 19; TEMP 36.4; O2SAT 96
[2025-01-08] MEDS: ATORVASTATIN CALCIUM 10 MG TABLET 80 MG PO (20:46)
[2025-01-09] VITALS (9 sets, daily range): BP systolic 106–131; BP diastolic 44–84; PULSE 55–72; RESP 16–23; TEMP 36.3–37.2; O2SAT 96–98
[2025-01-09] MEDS: ONDANSETRON INJ 2 MG/ML INJ 2 ML 4 MG IV (04:48)
[2025-01-09 05:54] LABS: Basophils % (Auto) 0 % (0-2.5); Eosinophils # (Auto) 0.2 Thou/mm3 (0.0-0.5); Eosinophils % (Auto) 2 % (0-10); Hematocrit 35.4 % (36.0-46.0); Hemoglobin 12.3 g/dL (12.0-16.0); Immature Granulocytes % (Auto) 0 % (0-0); Immature Granulocytes Auto 0.02 Thou/mm3 (0.00-0.00); Lymphocytes # (Auto) 3.7 Thou/mm3 (1.0-4.8); Lymphocytes % (Auto) 41 % (10-50); Mean Corpuscular HGB Conc 34.7 g/dl (31.0-37.0); Mean Corpuscular Hemoglobin 32.1 pg (25.0-35.0); Mean Corpuscular Volume 92 fL (80-100); Monocytes % (Auto) 11 % (0-12); Neutrophils # (Auto) 4.2 Thou/mm3 (1.8-7.7); Neutrophils % (Auto) 46 % (37-80); Nucleated Red Blood Cell % 0 /100 WBC (0); Platelet Count 153 Thou/mm3 (140-440); RDW Standard Deviation 55.7 fL (36.4-46.3); Red Blood Count 3.83 Miln/mm3 (4.00-5.20); White Blood Count 9.1 Thou/mm3 (3.6-11.0)
[2025-01-09 06:25] LABS: Anion Gap 13 (7-16); BUN/Creatinine Ratio 34 Ratio (12-20); Blood Urea Nitrogen 57 mg/dL (9-23); Calcium 9.9 mg/dL (8.3-10.6); Carbon Dioxide 22.7 mMol/L (20.0-31.0); Chloride 107 mMol/L (98-107); Creatinine (Component) 1.7 mg/dL (0.6-1.3); Estimated Creatinine Clearance 24.2 mL/min (>60); Glucose 163 mg/dL (74-106); Osmolality,Calculated 304 (275-295); Potassium 3.9 mMol/L (3.4-5.1); Sodium 143 mMol/L (136-145); eGFR 30 See Note
[2025-01-09] MEDS: INSULIN LISPRO (AdmeLOG) 1 UNIT/0.01 ML UNIT SC ×3 (08:19→17:30)
[2025-01-09] MEDS: ACETAMINOPHEN 325 MG TABLET 650 MG PO (08:41)
[2025-01-09] MEDS: HEPARIN SOD INJ 5000 UNIT/ML VIAL SC ×2 (08:42→21:45)
--- NOTE | 2025-01-09 09:19 | ESCONSULT_ITS ---
RE: ASIYA ALNG : 1940 DATE OF CONSULTATION: 01/08/2025 REASON FOR REFERRAL: Acute on chronic kidney disease. REFERRING PHYSICIAN: Dr Rodriguez HISTORY OF PRESENT ILLNESS: This patient is an 84-year-old -Portuguese woman with past medical history significant for CVA with no residual weakness, type 2 diabetes for 30 years, insulin-dependent, hypertension for 30 years as well and stage IIIB CKD whose baseline serum creatinine is anywhere from 1.2 to 1.4, who presented to the emergency room yesterday with shortness of breath and leg swelling. The patient was last seen in my clinic on 11/2024 and during that time, I saw that she had leg edema. She was supposed to see a construction or leak gang laborer in town. However, when I spoke to her today, she said that she was not able to see the construction or leak gang laborer because of insurance problems. When she presented to the emergency room yesterday, she has dyspnea on exertion and nagging cough. The patient also has some leg edema. She was started on IV Lasix and she said that since last night she was making more urine, but also had a lot of cramps. When she presented, creatinine was notably higher at 2.1. She is awake, alert, oriented, and doing much better now. She denies chest pain; however, she said that she had chest pain prior to coming to the hospital. Still has shortness of breath every time she talks. She denies fever. PAST MEDICAL HISTORY: As previously mentioned, insulin-dependent diabetes, hypertension, stage IIIB CKD, hyperlipidemia, possible CHF, history of COVID. CURRENT MEDICATIONS: 1. Acetaminophen. 2. Atorvastatin 80 mg at bedtime. 3. Lasix 40 mg IV x1 4. Glucagon. 5. Heparin 5000 units subcutaneously b.i.d. 6. Lispro sliding scale. 7. Ondansetron 4 mg IV q. 6 p.r.n. ALLERGIES: NO KNOWN DRUG ALLERGIES. PHYSICAL EXAMINATION: General: She is awake, alert, and oriented. Vital Signs: Blood pressure of 103/55, heart rate of 71, O2 saturation of 95% on room air, temperature 98.9. HEENT: Anicteric sclerae. Normocephalic. Neck: Supple. No JVD. Chest and Lungs: Symmetrical expansion. Clear breath sounds. Heart: Without murmur. Abdomen: Soft and nontender. Extremities: Bilateral trace edema in both lower extremities. LABORATORY DATA: Hemoglobin 11.8, WBC 7200, platelet count [id number]. Sodium 143, potassium 3.9, chloride 107, CO2 24.3, BUN 61, creatinine 1.9, glucose 116, hemoglobin A1c 6.5%, calcium 9.6, magnesium 1.9. ASSESSMENT: 1. Acute kidney injury on stage IIIB CKD, most likely secondary to cardiorenal syndrome, now improving from creatinine of 2.1 to 1.9. 2. History of diabetes, insulin-dependent. 3. History of hypertension. 4. Most likely congestive heart failure. 5. Mild anemia secondary to chronic kidney disease. PLAN: I agree with intermittent IV Lasix as I believe that this is cardiorenal syndrome. The patient is I think, already on the clothes drier assembler side given that her blood pressures have been lower. The patient should have 2D echocardiogram while in the hospital to assess her ejection fraction. The patient can be given oral Lasix given that her blood pressures have been on the lower side already. Keep a MAP of around 65 and above to prevent hypoperfusion of both kidneys. Continue monitoring kidney function on daily basis. DT: 09:46:47 TT: 11:19:00 Ref: [id number] - TID: [id number] MTDD
--- NOTE | 2025-01-09 15:07 | ESPR_ITS ---
Documentation for date of: 01/09/25 Subjective Subjective Interval history: Patient examined at bedside today. No acute overnight events. Patient reports she is wondering when she can go home. She still says she is feels a bit of shortness of breath. She denies having any heart history. Has not had a headache, vomiting. Chronometer Adjuster is Dr Morales. No other complaints at this time. Exam Vital Signs Temp Pulse Resp BP Pulse Ox O2 Del Method 97.9 F 60 23 H 128/60 96 Room Air 01/09/25 11:50 01/09/25 11:50 01/09/25 11:50 01/09/25 11:50 01/09/25 11:50 01/09/25 11:50 Narrative Exam General: AAOx3, NAD, elderly woman does not look her age. HEENT: Moist mucous membranes, conjunctiva clear, EOMI, PERRLA, Cardiovascular: S1, S2, radial pulses +2 bilat, RRR Pulmonary: Crackles on lower lobes bilaterally GI: No tenderness to light or deep palpitation, no guarding, rigidity, rebound tenderness or distension Extremities: Trace edema bilaterally in lower extremities below the knee, also very tender to palpation however not warm and no rash, dorsalis pedis pulses +2 bilaterally Neuro: AAOx3, no focal motor or sensory deficits in the UE or LE bilat Psych: Good judgement, thought and behavior. Cooperative Objective Labs 01/10/25 05:06 01/10/25 05:06 Labs: Laboratory Results - last 24 hr 01/09/25 04:45 WBC 9.1 RBC 3.83 L Hgb 12.3 Hct 35.4 L MCV 92 MCH 32.1 MCHC 34.7 RDW Std Deviation 55.7 H Plt Count 153 Neut % (Auto) 46 Lymph % (Auto) 41 [place] % (Auto) 11 Eos % (Auto) 2 Baso % (Auto) 0 Neut # (Auto) 4.2 Lymph # (Auto) 3.7 [place] # (Auto) 1.0 H Eos # (Auto) 0.2 Baso # (Auto) 0.0 Immature Gran # (Auto) 0.02 H Absolute Nucleated RBC 0.00 Immature Gran % 0 Nucleated RBC % 0 Sodium 143 Potassium 3.9 Chloride 107 Carbon Dioxide 22.7 Anion Gap 13 BUN 57 H Creatinine 1.7 H Estim Creat Clear Calc 24.2 L eGFR 30 L BUN/Creatinine Ratio 34 H Glucose 163 H Calculated Osmolality 304 H Calcium 9.9 Quality Measures Quality Measures none Advance care planning discussed with:: patient Assessment & Plan Assessment Current Active Medications: Generic Name Dose Route Start Last Admin Trade Name Freq PRN Reason Stop Dose Admin Acetaminophen 650 mg 01/07/25 21:03 01/09/25 08:41 Acetaminophen 325 Mg Tablet PO 02/06/25 21:02 650 mg Q6H PRN Administration Fever >100.4 or pain 1-3 Atorvastatin Calcium 80 mg 01/08/25 21:00 01/08/25 20:46 Atorvastatin Calcium 10 Mg Tablet PO 02/07/25 20:59 80 mg HS ASIM Administration Dextrose 25 ml 01/07/25 21:08 Dextrose 50%-Water Inj 50 Ml Syringe IV 02/06/25 21:07 Q15MIN PRN BG 50-70 responsive npo pt Dextrose 50 ml 01/07/25 21:08 Dextrose 50%-Water Inj 50 Ml Syringe IV 02/06/25 21:07 Q15MIN PRN BG <50 OR BG <70 & pt unresponsive Glucagon 1 mg 01/07/25 21:08 Glucagon Inj 1 Mg Vial IM Q15MIN PRN BG <70, and no IV access Heparin Sodium (Porcine) 5,000 unit 01/08/25 09:00 01/09/25 08:42 Heparin Sod Inj 5000 Unit/Ml Vial SC 01/22/25 08:59 5,000 unit BID ASIM Administration Insulin Human Lispro 0 unit 01/08/25 07:30 01/09/25 11:59 Insulin Lispro (Admelog) 1 Unit/0.01 Ml Unit SC 02/07/25 07:29 2 unit AC ASIM Administration Protocol Ondansetron HCl 4 mg 01/07/25 21:03 01/09/25 04:48 Ondansetron Inj 2 Mg/Ml Inj 2 Ml IV 02/06/25 21:02 4 mg Q6H PRN Administration NAUSEA OR VOMITING Protocol Plan Assessment Diane is a 84 year old female with PMH of CVA, DM2, HTN who was referred to the ER by her PCP for shortness of breath. #Anasarca, improving DDx: Cardiorenal syndrome, nephrotic syndrome, liver disease disease, medication side effect Patient denies having heart history, patient does not have protein in urine, no liver disease either Patient does take pioglitazone which can cause lower extremity edema however this has been going on for the past 3 months, would likely hold this medicine moving forward Nephrology recommends to get cardiology consult for concern for heart failure, cardiorenal syndrome and CAD Plan: ? Echo pending ? Lasix 20 IV now, transition to 20 BID by mouth starting tomorrow ? Monitor LATASHA's ? 1500 cc restriction ? Consider cardiology consult after echo #MORTEZA (improving) versus CKD Abdominal ultrasound 11/2024 show mild bilateral renal parenchymal scar formation Suspect pre-renal in the setting of anasarca. Creatinine down trended from 2.1- 1.9 after Lasix trial. Supporting cause of fluid overload status. Creatinine 1.7 today Plan: ? Avoid nephrotoxins ? Chronometer Adjuster Dr. Morales consulted. Recs: Continue Lasix 40 mg daily #Insulin-dependent type 2 diabetes, well-controlled Glucose 166 on admission. A1c from 06/04 was 7.0. A1c on this admission 6.5. Plan: ? Hold home medications ? Sliding scale insulin ? ACHS glucose checks #History of CVA #History HTN Plan: ? Resume home Lipitor 80 mg ? Restart home meds pending med recc ? Hold any MIL/ARB or nephrotoxins #Health Maintenance Disposition: MedSurg DVT prophylaxis: Heparin GI prophylaxis: None indicated at this time Diet: Renal/carb diet CODE STATUS: Full Patient seen and care discussed with my attending physician, Dr. Katelin Mcintyre, PGY-1 Attending Provider Attestation/Addendum I have examined the patient, reviewed labs and imaging findings, discussed the case with the resident(s), and reviewed entered orders. I agree with the plan of care as outlined in this note, with these additional summaries/recommendations: Patient seen at bedside. No acute overnight events. She reports improvement in bilateral lower extremity edema. Etiology for edema is CHF versus renal disease versus medication induced from pioglitazone. We will continue IV diuresis and pending echocardiogram. Patient noted to have MORTEZA on CKD on admission. Creatinine 2.1 and BUN 58 which improved to 1.7 with IV diuresis. Nephrology following and possibly related to cardiorenal syndrome and we will obtain cardiology consult if echocardiogram indicates new onset CHF. CKD likely secondary to underlying diabetic nephropathy. Diabetes mellitus type 2 currently well-controlled. A1c 6.5%. Continue to optimize blood pressure regimen and resume home medications. Dr. Katelin MD
--- NOTE | 2025-01-09 15:14 | PC.SS ---
Rounding note: cardiology consult pending. Patient also pending echo results to be read.
[2025-01-09] MEDS: FUROSEMIDE INJ 10 MG/ML VIAL 2 ML 20 MG IVP (16:06)
--- NOTE | 2025-01-09 21:07 | ECHO_ITS ---
Transthoracic Echo Report Ht (in): 61 Wt (lb): 172 Exam Location: [facility] Status: Inpatient Director Of Accounts Payable: CHAMBERLAIN Henrique^^^^ Indications: Procedure Performed: BP: / HR: 67 Rhythm: Sinus Technical Quality: Technically difficult study MEASUREMENTS (Male / Female) Normal Values 2D ECHO LV Diastolic Diameter PLAX 3.4 cm 4.2 - 5.9 / 3.9 - 5.3 cm LV Systolic Diameter PLAX 2.1 cm IVS Diastolic Thickness 1.0 cm 0.6 - 1.0 / 0.6 - 0.9 cm LVPW Diastolic Thickness 0.9 cm 0.6 - 1.0 / 0.6 - 0.9 cm LV Relative Wall Thickness 0.6 LVOT Diameter 1.6 cm Aortic Root Diameter 3.1 cm LA Systolic Diameter LX 2.1 cm 3.0 - 4.0 / 2.7 - 3.8 cm LA Volume Index 35.6 cm?/m? 16 - 28 cm?/m? Ascending Aorta Diameter 2.8 cm DOPPLER AV Peak Velocity 153.7 cm/s AV Peak Gradient 9.4 mmHg AV Mean Gradient 5.0 mmHg AV Velocity Time Integral 30.7 cm AI Peak Velocity 208.0 cm/s AI Peak Gradient 17.3 mmHg AI Pressure Half Time 607.0 ms LVOT Peak Velocity 89.4 cm/s LVOT Peak Gradient 3.2 mmHg LVOT Velocity Time Integral 21.8 cm LVOT Cardiac Index 1574.3 cm?/min?m? AV Area Cont Eq vti 1.4 cm? AV Area Cont Eq pk 1.2 cm? MV Peak Velocity 109.0 cm/s MV Peak Gradient 4.8 mmHg MV Mean Velocity 68.1 cm/s MV Mean Gradient 2.0 mmHg MV Area PHT 3.2 cm? Mitral E Point Velocity 72.5 cm/s Mitral A Point Velocity 94.2 cm/s Mitral E to A Ratio 0.8 LV E' Lateral Velocity 5.7 cm/s Mitral E to LV E' Lateral Ratio 12.8 LV E' Septal Velocity 6.4 cm/s Mitral E to LV E' Septal Ratio 11.3 TR Peak Velocity 242.0 cm/s TR Peak Gradient 23.4 mmHg PV Peak Velocity 137.0 cm/s PV Peak Gradient 7.5 mmHg RVOT Peak Velocity 74.6 cm/s FINDINGS Left Ventricle Normal left ventricular size, wall thickness, systolic function with no obvious regional wall motion abnormalities. There is grade I diastolic dysfunction of the left ventricle (impaired relaxation pattern). The left ventricular ejection fraction is normal, estimated at 55-60%. Right Ventricle The right ventricle is normal in size and systolic function. The estimated right ventricular systolic pressure, 25 mmHg. Left Atrium The left atrial cavity size is mildly increased. Right Atrium The right atrium is normal by two-dimensional imaging, color flow and Doppler imaging with no structural abnormalities, no thrombus formation present. Atrial Septum The interatrial septum appears normal with no evidence of a shunt. Aorta The aorta is normal by two-dimensional, color flow and Doppler interrogation. Mitral Valve Mild thickening of the mitral valve leaflets. Trace to mild mitral regurgitation. Mild mitral annular calcification. Aortic Valve Aortic valve sclerosis. Trace to mild aortic valve regurgitation. Tricuspid Valve There is mild tricuspid valve regurgitation. Pulmonic Valve Trivial pulmonic valve regurgitation. Vessels The pulmonary artery appears normal. The inferior vena cava pulmonary and hepatic veins appear normal. Pericardium The pericardium is normal by two-dimensional imaging. There is no significant pericardial effusion. CONCLUSIONS Indication: SOB Normal LV size and function with estimated EF 55 to 60%. Diastolic dysfunction stage I. Normal RV size and function. Normal RVSP 25 and 30 mmHg. Mildly to moderately dilated LA. Mild MR and TR. Trace AI. Mild MAC with mild aortic valve sclerosis without stenosis. Satish Corado (Electronically Signed) Final Date: 09 Jan 2025 17:19
[2025-01-09] MEDS: ATORVASTATIN CALCIUM 20 MG TABLET 80 MG PO (21:43)
--- NOTE | 2025-01-09 23:12 | ESPR_ITS ---
RE: ASIYA LANG : 1940 DATE OF SERVICE: 01/09/2025 HISTORY OF PRESENT ILLNESS: This patient is an 84-year-old -[place] woman with past medical history significant for CVA with no residual weakness, type 2 diabetes for 30 years, insulin-dependent diabetes, hypertension for 30 years as well and stage IIIB CKD whose baseline serum creatinine is anywhere from 1.2 to 1.4, who presented to the emergency room on 01/07/2025 with shortness of breath and leg swelling. The patient's creatinine level peaked at 2.1 and started to improve after she was placed on IV diuretic. She started having cramps and IV Lasix was discontinued. She maintains good urine output. She said that she feels very short of breath whenever she walks, but would always be comfortable lying down on the bed. CURRENT MEDICATIONS: 1. Acetaminophen. 2. Atorvastatin. 3. Furosemide 20 mg p.o. b.i.d. 4. Heparin 5000 units subcutaneously b.i.d. 5. Insulin lispro by sliding scale. 6. Ondansetron 4 mg IV q. 6 h p.r.n. PHYSICAL EXAMINATION: General: Awake, alert and oriented. Vital Signs: Blood pressure is 121/46, heart rate of 55, O2 saturations 97% on room air. HEENT: Anicteric sclerae and normocephalic. Neck: Supple. No JVD. Chest and Lungs: Symmetric expansion, clear breath sounds. Heart: without murmur. Abdomen: Soft and nontender. Extremities: No edema. LABORATORY DATA: Hemoglobin 12.3, WBC 9100, platelet count . Sodium , potassium 3.9, chloride 107, CO2 of 32.7. creatinine 1.7. Glucose 163. ASSESSMENT: 1. Acute kidney injury on stage IIIB chronic kidney disease, most likely secondary to cardiorenal syndrome, now improved. 2. History of diabetes, insulin-dependent. 3. History of hypertension. 4. Congestive heart failure. Rule out coronary artery disease. 5. Mild anemia secondary to chronic disease. PLAN: The patient's kidney function continues to improve. Continue diuretics. May need to see a transportation equipment painter while in-house. The patient might have anginal pain and possibly has coronary artery disease given her symptoms of dyspnea on exertion and chest pain prior to admission. It will be to her benefit if we can get a transportation equipment painter while she is in the hospital today. Continue to monitor urine output and kidney function, electrolytes on a daily basis. DT: 22:01:40 TT: 23:02:00 Ref: [id number] - TID: [id number] MTDD
[2025-01-10] VITALS (10 sets, daily range): BP systolic 114–153; BP diastolic 46–74; PULSE 54–81; RESP 16–19; TEMP 36.3–36.6; O2SAT 95–99
[2025-01-10 06:18] LABS: Basophils % (Auto) 1 % (0-2.5); Eosinophils # (Auto) 0.2 Thou/mm3 (0.0-0.5); Eosinophils % (Auto) 3 % (0-10); Hematocrit 33.7 % (36.0-46.0); Hemoglobin 11.5 g/dL (12.0-16.0); Immature Granulocytes % (Auto) 0 % (0-0); Immature Granulocytes Auto 0.03 Thou/mm3 (0.00-0.00); Lymphocytes # (Auto) 2.7 Thou/mm3 (1.0-4.8); Lymphocytes % (Auto) 36 % (10-50); Mean Corpuscular HGB Conc 34.1 g/dl (31.0-37.0); Mean Corpuscular Hemoglobin 31.9 pg (25.0-35.0); Mean Corpuscular Volume 94 fL (80-100); Monocytes # (Auto) 0.8 Thou/mm3 (0.0-0.8); Monocytes % (Auto) 11 % (0-12); Neutrophils # (Auto) 3.7 Thou/mm3 (1.8-7.7); Neutrophils % (Auto) 50 % (37-80); Nucleated Red Blood Cell % 0 /100 WBC (0); Platelet Count 137 Thou/mm3 (140-440); RDW Standard Deviation 56.6 fL (36.4-46.3); White Blood Count 7.5 Thou/mm3 (3.6-11.0)
[2025-01-10 06:58] LABS: Anion Gap 13 (7-16); BUN/Creatinine Ratio 31 Ratio (12-20); Blood Urea Nitrogen 56 mg/dL (9-23); Calcium 9.7 mg/dL (8.3-10.6); Carbon Dioxide 25.6 mMol/L (20.0-31.0); Chloride 105 mMol/L (98-107); Creatinine (Component) 1.8 mg/dL (0.6-1.3); Estimated Creatinine Clearance 22.8 mL/min (>60); Glucose 146 mg/dL (74-106); Magnesium 1.9 mg/dL (1.6-2.6); Osmolality,Calculated 305 (275-295); Potassium 4.1 mMol/L (3.4-5.1); Sodium 144 mMol/L (136-145); eGFR 28 See Note
[2025-01-10] MEDS: INSULIN LISPRO (AdmeLOG) 1 UNIT/0.01 ML UNIT SC ×3 (07:49→17:27)
[2025-01-10] MEDS: Furosemide 20 MG TABLET PO (08:44)
--- NOTE | 2025-01-10 09:11 | PC.SS ---
Follow up note: Cardio consulting. IV diuresis. Dr. Morales consulting. Pt will return home upon dc.
[2025-01-10] MEDS: FUROSEMIDE INJ 10 MG/ML 4ML VIAL 40 MG IVP ×2 (11:58→17:25)
--- NOTE | 2025-01-10 13:30 | ESCONSULT_ITS ---
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 Evaluated the patient in detail with the resident physician and agree with the treatment plan recommendation. HPI Data of Consult Requesting Physician: Dennis Thomason MD Admitting Provider: Marcia Mina MD Attending Provider: Dennis Thomason MD Primary Care Provider: Bina Ames MD Consult Narrative History of present illness: 84-year-old female with past medical history of CVA with no residual weakness, type 2 diabetes mellitus, CKD stage IIIb ,HTN was admitted on 01/07/2025 with chief complaint of shortness of breath. she complained of SOB since her covid , says sob more with exertion , denies orthopnea and PND , 1 week back she was just sitting and had central chest pain , pressured in nature went away with rest did not radiate . . Echo showed - Normal LV size and function with estimated EF 55 to 60%. Diastolic dysfunction stage I.Normal RV size and function. Normal RVSP 25 and 30 mmHg.Mildly to moderately dilated LA. Mild MR and TR. Trace AI.Mild MAC with mild aortic valve sclerosis without stenosis. ekg showes sinus rhythm . troponin on admission was <0.02 PMH: as above PSH: total hysterectomy, bilateral knee repair in 2018 SH: denies smoking, illicit drug use, alcohol use. Uses walker at baseline. allergies : no known allergies cc:: cc: Dennis Thomason MD Review of Systems Review of Systems Systems Reviewed: All systems reviewed, normal except as documented Narrative Review of Systems: GENERAL: Elderly female sitting comfortably in hospital bed, mild shortness of breath while talking VITALS: All vitals were reviewed and the pulse ox is 98% on room air HEENT: Normocephalic, atraumatic. Pupils are equal and reactive. Oral mucosa is moist. NECK: Supple, nontender, raised JVD CARDIOVASCULAR: Heart regular rhythm & rate. S1/S2. no murmur or gallop rub or extra beats. LUNGS: Clear to auscultation bilaterally with symmetrical chest rise. No laboring tachypnea or wheezing. No intercostal subcostal retraction. No rales and no rhonchi. ABDOMEN: Soft, flat, nontender to palpation, no guarding or rebound tenderness. Active and normal bowel sounds. EXTREMITIES:Moves all 4 extremities, 1+ pitting edema on b/l legs NEURO: Patient is AO x 3, Cranial nerves II through XII grossly intact. There is no focal neurologic deficits noted. PSYCHIATRIC: Patient is in normal mood, cooperative, no SI or HI or hallucinations. Exam Vital Signs Temp Pulse Resp BP Pulse Ox O2 Del Method 97.4 F 61 18 153/67 H 98 Room Air 01/10/25 12:00 01/10/25 12:00 01/10/25 12:00 01/10/25 12:00 01/10/25 12:00 01/10/25 12:00 Results Labs 01/11/25 04:57 01/11/25 04:57 Labs: Short CBC 01/10/25 Range/Units 05:06 WBC 7.5 (3.6-11.0) Thou/mm3 Hgb 11.5 L (12.0-16.0) g/dL Hct 33.7 L (36.0-46.0) % Plt Count 137 L (140-440) Thou/mm3 BMP 01/10/25 05:06 Sodium 144 Potassium 4.1 Chloride 105 Carbon Dioxide 25.6 BUN 56 H Creatinine 1.8 H Glucose 146 H Calcium 9.7 Quality Measures Quality Measures none Advance care planning discussed with:: patient Medications Home Medications and Allergies Home Medications ?Medication ?Instructions ?Recorded ?Confirmed ?Type alendronate 70 mg effervescent 70 mg PO QWEEK 02/21/18 04/09/21 History tablet amlodipine 10 mg tablet 10 mg PO QDAY 02/21/1804/09 History pantoprazole 40 mg tablet,delayed 40 mg PO QDAY 04/09/21 History release aspirin 325 mg tablet,delayed 325 mg PO QDAY 06/25/18 04/09/21 History release simvastatin 40 mg tablet 1 tab PO HS 06/25/18 1 History linagliptin 5 mg tablet (Tradjenta) 5 mg PO QDAY 03/1304/09/21 History allopurinol 100 mg tablet 100 mg PO QDAY 04/09/2103/13 History calcifediol 30 mcg capsule,24 30 mcg PO QDAY 04/09/21 04/09/21 History hr,extended release (Rayaldee) hydralazine 50 mg tablet 50 mg PO TID 04/09/21 History insulin human U-100 NPH-regulr 32 unit subcut QMORNING 04/09/21 04/09/21 History 70-30 mix 100 unit/mL subcutaneous susp (Novolin 70/30 U-100 Insulin) lisinopril 10 mg tablet 10 mg PO QDAY 04/09/2104/09 History Allergies Allergy/AdvReac Type Severity Reaction Status Date / Time No Known Allergies Allergy Verified 01/07/25 14:54 Visit Medications Acetaminophen (Acetaminophen 325 Mg Tablet) 650 mg PO Q6H PRN PRN Reason: Fever >100.4 or pain 1-3 Stop: 02/06/25 21:02 Last Admin: 01/09/25 08:41 Dose: 650 mg Atorvastatin Calcium (Atorvastatin Calcium 20 Mg Tablet) 80 mg PO HS [facility] Stop: 02/07/25 20:59 Last Admin: 01/09/25 21:43 Dose: 80 mg Dextrose (Dextrose 50%-Water Inj 50 Ml Syringe) 25 ml IV Q15MIN PRN PRN Reason: BG 50-70 responsive npo pt Stop: 02/06/25 21:07 Dextrose (Dextrose 50%-Water Inj 50 Ml Syringe) 50 ml IV Q15MIN PRN PRN Reason: BG <50 OR BG <70 & pt unresponsive Stop: 02/06/25 21:07 Furosemide (Furosemide Inj 10 Mg/Ml 4ml Vial) 40 mg IVP BIDD [facility] Stop: 02/09/25 11:14 Last Admin: 01/10/25 11:58 Dose: 40 mg Glucagon (Glucagon Inj 1 Mg Vial) 1 mg IM Q15MIN PRN PRN Reason: BG <70, and no IV access Heparin Sodium (Porcine) (Heparin Sod Inj 5000 Unit/Ml Vial) 5,000 unit SC BID [facility] Stop: 01/22/25 08:59 Last Admin: 01/10/25 08:51 Dose: Not Given Insulin Human Lispro (Insulin Lispro (Admelog) 1 Unit/0.01 Ml Unit) 0 unit SC AC [facility]; Protocol Stop: 02/07/25 07:29 Last Admin: 01/10/25 11:57 Dose: 3 unit Ondansetron HCl (Ondansetron Inj 2 Mg/Ml Inj 2 Ml) 4 mg IV Q6H PRN; Protocol PRN Reason: NAUSEA OR VOMITING Stop: 02/06/25 21:02 Last Admin: 01/09/25 04:48 Dose: 4 mg Discontinued Medications Atorvastatin Calcium (Atorvastatin Calcium 10 Mg Tablet) 80 mg PO HS [facility] Stop: 02/07/25 20:59 Last Admin: 01/08/25 20:46 Dose: 80 mg Furosemide (Furosemide Inj 10 Mg/Ml 4ml Vial) 40 mg IVP X1 ONE Stop: 01/07/25 21:08 Last Admin: 01/07/25 22:20 Dose: 40 mg Furosemide (Furosemide 20 Mg Tablet) 20 mg PO QAM [facility] Stop: 02/09/25 08:59 Furosemide (Furosemide Inj 10 Mg/Ml Vial 2 Ml) 20 mg IVP X1 ONE Stop: 01/09/25 15:28 Last Admin: 01/09/25 16:06 Dose: 20 mg Furosemide (Furosemide 20 Mg Tablet) 20 mg PO BID [facility] Stop: 02/09/25 08:59 Last Admin: 01/10/25 08:44 Dose: 20 mg Assessment & Plan Plan 84-year-old female with past medical history of CVA with no residual weakness, type 2 diabetes mellitus, CKD stage IIIb ,HTN was admitted on 01/07/2025 with chief complaint of shortness of breath. Cardiology was consulted for possible CHF versus cardiorenal syndrome . Echo showed - Normal LV size and function with estimated EF 55 to 60%. Diastolic dysfunction stage I.Normal RV size and function. Normal RVSP 25 and 30 mmHg.Mildly to moderately dilated LA. Mild MR and TR. Trace AI.Mild MAC with mild aortic valve sclerosis without stenosis. ekg showes sinus rhythm . troponin on admission was <0.02 #SOB most likely sec to post covid fibrotic changes in lungs #Anasarca, improving #heart failure with preserved EF #Diastolic dysfunction I - patient complained of SOB since her first covid since 2019, she has SOB with exertion , improves on rest -she denies any prior cardiac history and doesn't have any chest pain currently -She has elevated JVD -Echo showed - Normal LV size and function with estimated EF 55 to 60%. Diastolic dysfunction stage I.Normal RV size and function. Normal RVSP 25 and 30 mmHg.Mildly to moderately dilated LA. Mild MR and TR. Trace AI.Mild MAC with mild aortic valve sclerosis without stenosis. ekg showes sinus rhythm . -Chest xray- Moderate vascular congestion -troponin on admission was <0.02 -Currently on lasix 40 iv bid -Monitor LATASHA's -will continue to monitor for now SOB most likely secondary to fibrotic changes post covid, pulmonary artery pressure was normal in ECHO Rest of medical management as per primary team Discussed the patient with my attending Dr Loya, Ashley Hirsch MD,PGY-3
--- NOTE | 2025-01-10 14:10 | XR_ITS ---
Examination: Abdomen sonogram, complete Date and time of exam: January 10, 2025 1613 hours INDICATIONS: Shortness of breath one week, prior abdominal sonogram are 71 2024 pancreatic head 3.8 cm. Technique: Multiple real-time grayscale transabdominal sonographic images of the abdomen have been obtained. Findings: Cholelithiasis, negative for cholecystitis Common bile duct 0.8 cm no stones Pancreatic head on this study 3.3 cm Aorta not enlarged Liver 17.1 cm with mild irregular contour no focal liver lesions Normal hepatopedal portal venous flow Patent IVC Right kidney 8.8 cm cortex 1.3 cm The kidney 8.2 cm renal cortex 1.4 cm Moderate bilateral renal parenchymal scar formation, no hydronephrosis Spleen 11.4 cm IMPRESSION: Cholelithiasis, negative for cholecystitis Mild hepatomegaly primary hepatocellular disease Small kidneys with bilateral renal cortical thinning Mild bilateral renal parenchymal scar formation
--- NOTE | 2025-01-10 14:29 | PD.RESPRO ---
Documentation for date of: 01/10/25 Subjective Subjective Interval history: Patient examined at bedside today. No acute overnight events. Says that she is doing well however still having this partner's of breath on exertion. She denies having any chest pain. She does notice that her legs are getting less swollen. She is wondering when she is in a go home. She does not have a headache at this time, has not vomited. No other complaints this time. Exam Vital Signs Temp Pulse Resp BP Pulse Ox O2 Del Method 97.4 F 61 18 153/67 H 98 Room Air 01/10/25 12:00 01/10/25 12:00 01/10/25 12:00 01/10/25 12:00 01/10/25 12:00 01/10/25 12:00 Narrative Exam General: AAOx3, NAD, elderly woman does not look her age. HEENT: Moist mucous membranes, conjunctiva clear, EOMI, PERRLA, Cardiovascular: S1, S2, radial pulses +2 bilat, RRR Pulmonary: Crackles on lower lobes bilaterally GI: No tenderness to light or deep palpitation, no guarding, rigidity, rebound tenderness or distension Extremities: Trace edema bilaterally in lower extremities below the knee, also very tender to palpation however not warm and no rash, dorsalis pedis pulses +2 bilaterally Neuro: AAOx3, no focal motor or sensory deficits in the UE or LE bilat Psych: Good judgement, thought and behavior. Cooperative Objective Labs 01/11/25 04:57 01/11/25 04:57 Labs: Laboratory Results - last 24 hr 01/10/25 05:06 WBC 7.5 RBC 3.60 L Hgb 11.5 L Hct 33.7 L MCV 94 MCH 31.9 MCHC 34.1 RDW Std Deviation 56.6 H Plt Count 137 L Neut % (Auto) 50 Lymph % (Auto) 36 [place] % (Auto) 11 Eos % (Auto) 3 Baso % (Auto) 1 Neut # (Auto) 3.7 Lymph # (Auto) 2.7 [place] # (Auto) 0.8 Eos # (Auto) 0.2 Baso # (Auto) 0.0 Immature Gran # (Auto) 0.03 H Absolute Nucleated RBC 0.00 Immature Gran % 0 Nucleated RBC % 0 Sodium 144 Potassium 4.1 Chloride 105 Carbon Dioxide 25.6 Anion Gap 13 BUN 56 H Creatinine 1.8 H Estim Creat Clear Calc 22.8 L eGFR 28 L BUN/Creatinine Ratio 31 H Glucose 146 H Calculated Osmolality 305 H Calcium 9.7 Magnesium 1.9 Quality Measures Quality Measures none Advance care planning discussed with:: patient Assessment & Plan Assessment Current Active Medications: Generic Name Dose Route Start Last Admin Trade Name Freq PRN Reason Stop Dose Admin Acetaminophen 650 mg 01/07/25 21:03 01/09/25 08:41 Acetaminophen 325 Mg Tablet PO 02/06/25 21:02 650 mg Q6H PRN Administration Fever >100.4 or pain 1-3 Atorvastatin Calcium 80 mg 01/09/25 21:00 01/09/25 21:43 Atorvastatin Calcium 20 Mg Tablet PO 02/07/25 20:59 80 mg HS [facility] Administration Dextrose 25 ml 01/07/25 21:08 Dextrose 50%-Water Inj 50 Ml Syringe IV 02/06/25 21:07 Q15MIN PRN BG 50-70 responsive npo pt Dextrose 50 ml 01/07/25 21:08 Dextrose 50%-Water Inj 50 Ml Syringe IV 02/06/25 21:07 Q15MIN PRN BG <50 OR BG <70 & pt unresponsive Furosemide 40 mg 01/10/25 11:15 01/10/25 11:58 Furosemide Inj 10 Mg/Ml 4ml Vial IVP 02/09/25 11:14 40 mg BIDD [facility] Administration Glucagon 1 mg 01/07/25 21:08 Glucagon Inj 1 Mg Vial IM Q15MIN PRN BG <70, and no IV access Heparin Sodium (Porcine) 5,000 unit 01/08/25 09:00 01/10/25 08:51 Heparin Sod Inj 5000 Unit/Ml Vial SC 01/22/25 08:59 Not Given BID [facility] Insulin Human Lispro 0 unit 01/08/25 07:30 01/10/25 11:57 Insulin Lispro (Admelog) 1 Unit/0.01 Ml Unit SC 02/07/25 07:29 3 unit AC [facility] Administration Protocol Ondansetron HCl 4 mg 01/07/25 21:03 01/09/25 04:48 Ondansetron Inj 2 Mg/Ml Inj 2 Ml IV 02/06/25 21:02 4 mg Q6H PRN Administration NAUSEA OR VOMITING Protocol Plan Assessment Diane is a 84 year old female with PMH of CVA, DM2, HTN who was referred to the ER by her PCP for shortness of breath. #History of HFpEF #Anasarca, improving DDx: Cardiorenal syndrome, nephrotic syndrome, liver disease disease, medication side effect Patient denies having heart history, patient does not have protein in urine, no liver disease either Patient does take pioglitazone which can cause lower extremity edema however this has been going on for the past 3 months, would likely hold this medicine moving forward Nephrology recommends to get cardiology consult for concern for heart failure, cardiorenal syndrome and CAD Echo shows HFpEF, normal RSVP, slight dilatation of the LA Patient is endorsing shortness of breath, however is not requiring oxygen at this time, swelling has come down and also no JVD Will increase diuresis as she is -1.5 L at this time, and will follow-up with cardiology recommendations Patient may need CAD workup Plan: ? Cardiology consulted, appreciate recs ? Lasix 40 mg IV twice daily ? Monitor LATASHA's ? 1500 cc restriction ? Keep magnesium potassium above 2 and 4 respectively ? Follow-up abdominal ultrasound #MORTEZA (improving) versus CKD Abdominal ultrasound 11/2024 show mild bilateral renal parenchymal scar formation Suspect pre-renal in the setting of anasarca. Creatinine down trended from 2.1-1.9 after Lasix trial. Supporting cause of fluid overload status. Creatinine 1.8 today Plan: ? Avoid nephrotoxins ? Renally dose medicines ? Trend with CMP #Insulin-dependent type 2 diabetes, well-controlled Glucose 166 on admission. A1c from 06/04 was 7.0. A1c on this admission 6.5. Plan: ? Hold home medications ? Sliding scale insulin ? ACHS glucose checks #History of CVA #History HTN Plan: ? Resume home Lipitor 80 mg ? Continue with home aspirin ? Restart home meds pending med recc ? Hold any MIL/ARB or nephrotoxins #Health Maintenance Disposition: MedSurg DVT prophylaxis: Heparin GI prophylaxis: None indicated at this time Diet: Renal/carb diet CODE STATUS: Full Patient seen and care discussed with my attending physician, Dr. Katelin Mcintyre, PGY-1 Attending Provider Attestation/Addendum I have examined the patient, reviewed labs and imaging findings, discussed the case with the resident(s), and reviewed entered orders. I agree with the plan of care as outlined in this note. Dr. Katelin MD
[2025-01-10] MEDS: ASPIRIN EC 81 MG TABEC PO (17:27)
[2025-01-10] MEDS: ATORVASTATIN CALCIUM 20 MG TABLET 80 MG PO (20:14)
[2025-01-10] MEDS: HEPARIN SOD INJ 5000 UNIT/ML VIAL SC (20:16)
[2025-01-11] VITALS (8 sets, daily range): BP systolic 112–133; BP diastolic 54–76; PULSE 55–80; RESP 16–17; TEMP 36.2–36.4; O2SAT 96–97
[2025-01-11] MEDS: FUROSEMIDE INJ 10 MG/ML 4ML VIAL 40 MG IVP ×2 (05:13→17:33)
[2025-01-11 06:08] LABS: Basophils # (Auto) 0.1 Thou/mm3 (0.0-0.2); Basophils % (Auto) 1 % (0-2.5); Eosinophils # (Auto) 0.2 Thou/mm3 (0.0-0.5); Eosinophils % (Auto) 2 % (0-10); Hematocrit 34.9 % (36.0-46.0); Hemoglobin 12.3 g/dL (12.0-16.0); Immature Granulocytes % (Auto) 0 % (0-0); Immature Granulocytes Auto 0.02 Thou/mm3 (0.00-0.00); Lymphocytes # (Auto) 2.6 Thou/mm3 (1.0-4.8); Lymphocytes % (Auto) 31 % (10-50); Mean Corpuscular HGB Conc 35.2 g/dl (31.0-37.0); Mean Corpuscular Hemoglobin 32.2 pg (25.0-35.0); Mean Corpuscular Volume 91 fL (80-100); Monocytes # (Auto) 0.9 Thou/mm3 (0.0-0.8); Monocytes % (Auto) 11 % (0-12); Neutrophils # (Auto) 4.7 Thou/mm3 (1.8-7.7); Neutrophils % (Auto) 56 % (37-80); Nucleated Red Blood Cell % 0 /100 WBC (0); Platelet Count 166 Thou/mm3 (140-440); RDW Standard Deviation 53.6 fL (36.4-46.3); Red Blood Count 3.82 Miln/mm3 (4.00-5.20); White Blood Count 8.4 Thou/mm3 (3.6-11.0)
[2025-01-11 06:30] LABS: Anion Gap 13 (7-16); BUN/Creatinine Ratio 33 Ratio (12-20); Blood Urea Nitrogen 62 mg/dL (9-23); Calcium 9.5 mg/dL (8.3-10.6); Carbon Dioxide 25.1 mMol/L (20.0-31.0); Chloride 103 mMol/L (98-107); Creatinine (Component) 1.9 mg/dL (0.6-1.3); Estimated Creatinine Clearance 21.6 mL/min (>60); Glucose 160 mg/dL (74-106); Magnesium 1.8 mg/dL (1.6-2.6); Osmolality,Calculated 301 (275-295); Potassium 3.7 mMol/L (3.4-5.1); Sodium 141 mMol/L (136-145); eGFR 26 See Note
[2025-01-11] MEDS: INSULIN LISPRO (AdmeLOG) 1 UNIT/0.01 ML UNIT SC ×2 (08:43→12:39)
[2025-01-11] MEDS: ASPIRIN EC 81 MG TABEC PO (08:43)
[2025-01-11] MEDS: HEPARIN SOD INJ 5000 UNIT/ML VIAL SC (08:44)
--- NOTE | 2025-01-11 12:57 | ESPR_ITS ---
<Statement entered by Philip Loya MD - 01/11/25 16:38> I personally examined the patient evaluated she is feeling better she responded well to diuretics with some element of heart failure may be her most of her symptoms are due to pulmonary fibrosis post-COVID syndrome recommend medical management oxygen supplement can be discharged home from a cardiovascular point of view no further cardiac workup is indicated at this time. Documentation for date of: 01/11/25 Subjective Subjective Interval history: Patient was examined bedside this morning, no acute overnight event. She was playing cards comfortably with her friend at bedside. Exam Vital Signs Temp Pulse Resp BP Pulse Ox O2 Del Method 97.1 F 55 L 17 133/61 H 97 Room Air 01/11/25 11:59 01/11/25 11:59 01/11/25 11:59 01/11/25 11:59 01/11/25 11:59 01/11/25 11:59 Narrative Exam GENERAL: Elderly female sitting comfortably in hospital bed, mild shortness of breath while talking VITALS: All vitals were reviewed and the pulse ox is 98% on room air HEENT: Normocephalic, atraumatic. Pupils are equal and reactive. Oral mucosa is moist. NECK: Supple, nontender, raised JVD CARDIOVASCULAR: Heart regular rhythm & rate. S1/S2. no murmur or gallop rub or extra beats. LUNGS: Clear to auscultation bilaterally with symmetrical chest rise. No laboring tachypnea or wheezing. No intercostal subcostal retraction. No rales and no rhonchi. ABDOMEN: Soft, flat, nontender to palpation, no guarding or rebound tenderness. Active and normal bowel sounds. EXTREMITIES:Moves all 4 extremities, 1+ pitting edema on b/l legs NEURO: Patient is AO x 3, Cranial nerves II through XII grossly intact. There is no focal neurologic deficits noted. PSYCHIATRIC: Patient is in normal mood, cooperative, no SI or HI or hallucinations. Objective Labs 01/11/25 04:57 01/11/25 04:57 Labs: Laboratory Results - last 24 hr 01/11/25 04:57 WBC 8.4 RBC 3.82 L Hgb 12.3 Hct 34.9 L MCV 91 MCH 32.2 MCHC 35.2 RDW Std Deviation 53.6 H Plt Count 166 D Neut % (Auto) 56 Lymph % (Auto) 31 [place] % (Auto) 11 Eos % (Auto) 2 Baso % (Auto) 1 Neut # (Auto) 4.7 Lymph # (Auto) 2.6 [place] # (Auto) 0.9 H Eos # (Auto) 0.2 Baso # (Auto) 0.1 Immature Gran # (Auto) 0.02 H Absolute Nucleated RBC 0.00 Immature Gran % 0 Nucleated RBC % 0 Sodium 141 Potassium 3.7 Chloride 103 Carbon Dioxide 25.1 Anion Gap 13 BUN 62 H Creatinine 1.9 H Estim Creat Clear Calc 21.6 L eGFR 26 L BUN/Creatinine Ratio 33 H Glucose 160 H Calculated Osmolality 301 H Calcium 9.5 Magnesium 1.8 Quality Measures Quality Measures none Advance care planning discussed with:: patient Assessment & Plan Assessment Current Active Medications: Generic Name Dose Route Start Last Admin Trade Name Freq PRN Reason Stop Dose Admin Acetaminophen 650 mg 01/07/25 21:03 01/09/25 08:41 Acetaminophen 325 Mg Tablet PO 02/06/25 21:02 650 mg Q6H PRN Administration Fever >100.4 or pain 1-3 Aspirin 81 mg 01/10/25 14:45 01/11/25 08:43 Aspirin Ec 81 Mg [place] PO 02/09/25 14:44 81 mg QDAY [facility] Administration Atorvastatin Calcium 80 mg 01/09/25 21:00 01/10/25 20:14 Atorvastatin Calcium 20 Mg Tablet PO 02/07/25 20:59 80 mg HS [facility] Administration Dextrose 25 ml 01/07/25 21:08 Dextrose 50%-Water Inj 50 Ml Syringe IV 02/06/25 21:07 Q15MIN PRN BG 50-70 responsive npo pt Dextrose 50 ml 01/07/25 21:08 Dextrose 50%-Water Inj 50 Ml Syringe IV 02/06/25 21:07 Q15MIN PRN BG <50 OR BG <70 & pt unresponsive Furosemide 40 mg 01/10/25 11:15 01/11/25 05:13 Furosemide Inj 10 Mg/Ml 4ml Vial IVP 02/09/25 11:14 40 mg BIDD [facility] Administration Glucagon 1 mg 01/07/25 21:08 Glucagon Inj 1 Mg Vial IM Q15MIN PRN BG <70, and no IV access Heparin Sodium (Porcine) 5,000 unit 01/08/25 09:00 01/11/25 08:44 Heparin Sod Inj 5000 Unit/Ml Vial SC 01/22/25 08:59 5,000 unit BID [facility] Administration Insulin Human Lispro 0 unit 01/08/25 07:30 01/11/25 12:39 Insulin Lispro (Admelog) 1 Unit/0.01 Ml Unit SC 02/07/25 07:29 4 unit AC [facility] Administration Protocol Ondansetron HCl 4 mg 01/07/25 21:03 01/09/25 04:48 Ondansetron Inj 2 Mg/Ml Inj 2 Ml IV 02/06/25 21:02 4 mg Q6H PRN Administration NAUSEA OR VOMITING Protocol Plan 84-year-old female with past medical history of CVA with no residual weakness, type 2 diabetes mellitus, CKD stage IIIb ,HTN was admitted on 01/07/2025 with chief complaint of shortness of breath. Cardiology was consulted for possible CHF versus cardiorenal syndrome . Echo showed - Normal LV size and function with estimated EF 55 to 60%. Diastolic dysfunction stage I.Normal RV size and function. Normal RVSP 25 and 30 mmHg.Mildly to moderately dilated LA. Mild MR and TR. Trace AI.Mild MAC with mild aortic valve sclerosis without stenosis. ekg showes sinus rhythm . troponin on admission was <0.02 #SOB most likely sec to post covid fibrotic changes in lungs #Anasarca, improving #heart failure with preserved EF #Diastolic dysfunction I - patient complained of SOB since her first covid since 2019, she has SOB with exertion , improves on rest -she denies any prior cardiac history and doesn't have any chest pain currently -She has elevated JVD -Echo showed - Normal LV size and function with estimated EF 55 to 60%. Diastolic dysfunction stage I.Normal RV size and function. Normal RVSP 25 and 30 mmHg.Mildly to moderately dilated LA. Mild MR and TR. Trace AI.Mild MAC with mild aortic valve sclerosis without stenosis. ekg showes sinus rhythm . -Chest xray- Moderate vascular congestion -troponin on admission was <0.02 -Currently on lasix 40 iv bid -Monitor LATASHA's - SOB most likely secondary to fibrotic changes post covid, pulmonary artery pressure was normal in ECHO , no cardiac workup needed, she has component of mild right heart failure. Rest of medical management as per primary team Discussed the patient with my attending Dr Loya, Ashley Hirsch MD,PGY-3
--- NOTE | 2025-01-11 15:16 | ESDS_ITS ---
<Statement entered by Rossana Copeland MD - 01/12/25 06:46> Patient was seen and examined at bedside. I agree on most of the assessment and plan of this patient. - Patient's plan and care discussed with my attending, Dr. Katelin Copeland MD Internal Medicine PGY-2 Planned Discharge Date 01/11/25 DS: Providers Provider Date of admission: 01/09/25 14:44 Primary care physician: Bina Ames MD Admitting Provider: Marcia Mina MD Attending Provider on Admission: Dennis Thomason MD Consults: 01/07/25 23:43 Referral Registered Dietitian Routine Comment: 01/08/25 07:00 Consult to Nephrology Routine Comment: morteza versus ckd, sob Consulting Provider: Jana Morales 01/10/25 11:01 Consult to Cardiology Routine Comment: Consulting Provider: Philip Loya Instructions: SOB and HFpEF Attending Provider on DC: Dennis Thomason MD Discharging Provider: Dennis Thomason MD DS: Diagnosis Problem List Completed Was Problem List Reviewed/Reconciled?: Yes Hospital Course Hospital Course Hospital course: Diane is a 84 year old female with PMH of CVA, DM2, HTN who was admitted to [facility] on 01/07/2025 for MORTEZA on CKD, HFpEF exacerbation, possible cardiorenal syndrome. Patient coming to the ED with unremarkable vitals and was saturating on room air, and was worked up and was found to have creatinine of 2.1, glucosuria in the urine, chest x-ray showed moderate vascular congestion, EKG showed normal sinus rhythm. Patient was experiencing shortness of breath and diffuse lower extremity edema in which she was admitted for further workup. While admitted, patient was given a Lasix trial and patient had improved with her creatinine function and her shortness of breath. Patient was continued to be diuresed IV with Lasix 40 mg IV, however patient continued to experience for no shortness of breath. Patient continued to be diuresed, nephrology and cardiology were consulted. Nephrology has suspicion for cardiorenal syndrome as creatinine function continue to stay around 1.71.8. Cardiology was consulted after patient had echocardiogram which showed normal RVSP and HFpEF and did not recommend cardiac catheterization at this time. Patient was experiencing some chest pain throughout the admission however that has resolved and patient was complaining shortness of breath mainly on exertion. This could be due to worsening of HFpEF. Nephrology continued to see patient and recommended 20 mg oral Lasix outpatient and for follow-up. Patient has also had a chronic enlarged pancreatic head in which she needs further surveillance, abdominal ultrasound showed pancreatic head to be 3.3 cm at the time. She will need to follow-up outpatient with imaging for enlarged pancreatic head. Discharge instructions: Follow-up with PCP within 1 week Follow-up with roll coating machine operator within 1 weeks Follow-up with kidney doctor, Dr Morales within 1 weeks Take the new dose of your water pill, Lasix 20 mg once a day Avoid taking medicines called NSAIDs, such as Advil, Motrin, Ibuprofen, Aleeve, Naproxen and Meloxicam Stop taking piloglitazone as this medicine could of made you retain fluid in your legs Return to ER if symptoms worsen or return Heart Failure instructions Please ensure you have a weighing scale, 2 gram sodium restriction, 2L fluid restriction. Please note your weight on the discharge paperwork prior to leaving every morning after you wake up and urinate, please weight yourself, and document the date and the weight. if your weight increases by 2 pounds in 1 day or by 5 pounds in a week, call your roll coating machine operator. if you have shortness of breath, having to use more pillows to prop your head up when you sleep, waking up short of breath, clothes fitting tighter, swelling in your legs, decreased urination, please call your PCP. If any symptoms are severe, go to the emergency department. Avoid using medications called NSAIDs (aka non steroidal anti inflammatory drugs) such as Advil, Aleeve, Motrin, Ibuprofen and Naproxen. Avoid eating canned vegetables, canned soups, frozen dinners as these tend to have a lot of salt. Problem list: #? Cardiorenal syndrome #History of HFpEF #Anasarca, improving #MORTEZA #CKD #Insulin-dependent type 2 diabetes, well-controlled #History of CVA #History HTN #Enlarged Pancreatic Head, 3.3 cm Discharge summary was reviewed with my attending Dr. Thomason and my senior resident Dr. Dinorah Mcintyre, PGY-1 Time Spent with Patient Time attestation: Total time spent providing and/or coordinating discharge services: Time spent: Greater than 30 minutes Exam Vital Signs Temp Pulse Resp BP Pulse Ox O2 Del Method 97.1 F 55 L 17 133/61 H 97 Room Air 01/11/25 11:59 01/11/25 11:59 01/11/25 11:59 01/11/25 11:59 01/11/25 11:59 01/11/25 11:59 Narrative Exam General: AAOx3, NAD, elderly woman does not look her age. HEENT: Moist mucous membranes, conjunctiva clear, EOMI, PERRLA, Cardiovascular: S1, S2, radial pulses +2 bilat, RRR Pulmonary: Minimal crackles in R lower base of lung GI: No tenderness to light or deep palpitation, no guarding, rigidity, rebound tenderness or distension Extremities: Trace edema bilaterally in lower extremities below the knee, also very tender to palpation however not warm and no rash, dorsalis pedis pulses +2 bilaterally Neuro: AAOx3, no focal motor or sensory deficits in the UE or LE bilat Psych: Good judgement, thought and behavior. Cooperative Discharge Plan Plan Patient Disposition: HOME (Self Care) Patient condition on transfer: Stable Care Plan Goals: Discharge instructions: Follow-up with PCP within 1 week Follow-up with roll coating machine operator within 1 weeks Follow-up with kidney doctor, Dr Morales within 1 weeks Take the new dose of your water pill, Lasix 20 mg once a day Avoid taking medicines called NSAIDs, such as Advil, Motrin, Ibuprofen, Aleeve, Naproxen and Meloxicam Stop taking piloglitazone as this medicine could of made you retain fluid in your legs Return to ER if symptoms worsen or return CHF instructions Please ensure you have a weighing scale, 2 gram sodium restriction, 2L fluid restriction. Please note your weight on the discharge paperwork prior to leaving every morning after you wake up and urinate, please weight yourself, and document the date and the weight. if your weight increases by 2 pounds in 1 day or by 5 pounds in a week, call your roll coating machine operator. if you have shortness of breath, having to use more pillows to prop your head up when you sleep, waking up short of breath, clothes fitting tighter, swelling in your legs, decreased urination, please call your PCP. If any symptoms are severe, go to the emergency department. Avoid using medications called NSAIDs (aka non steroidal anti inflammatory drugs) such as Advil, Aleeve, Motrin, Ibuprofen and Naproxen. Avoid eating canned vegetables, canned soups, frozen dinners as these tend to have a lot of salt. Prescriptions/Referrals Prescriptions/Med Rec: New furosemide [Lasix] 20 mg tablet 20 mg PO QDAY Qty: 30 2RF Rx Instructions: Take one tablet by mouth once a day Continued amlodipine 10 mg Tablet 10 mg PO QDAY pantoprazole 40 mg Tablet,Delayed Release (Dr/Ec) 40 mg PO QDAY hydralazine 50 mg tablet 50 mg PO TID Rayaldee 30 mcg capsule,extended release 24 hr 30 mcg PO QDAY allopurinol 100 mg tablet 100 mg PO QDAY Novolin 70/30 U-100 Insulin 100 unit/mL (70-30) suspension 32 unit SUBCUT QMORNING Patient Comments: inject 32 units subcutaneously twice a day simvastatin 40 mg Tablet 1 tab PO HS aspirin 325 mg Tablet,Delayed Release (Dr/Ec) 325 mg PO QDAY Tradjenta 5 mg Tablet 5 mg PO QDAY Discontinued alendronate 70 mg Tablet, Effervescent 70 mg PO QWEEK lisinopril 10 mg tablet 10 mg PO QDAY Referrals: Bina Ames MD [Primary Care Provider] - Patient/Caregiver Discharge Instructions Discharge Activity: activity as tolerated Education Materials: Diabetes and Heart Disease, Diabetes and Kidney Disease, Hypertension and Kidney Disease Print Language: Luxembourgish Stand Alone Forms: Trudi Award Info., Patient Portal Info Letter Discharge Order Discharge Orders: Discharge (Routine); Ordered 01/11/25 Ordered By: Martita Mcintyre Quality Discharge Quality Measures VTE prophylaxis (Heparin ) Attestestation MD Attestation I have examined the patient, reviewed labs and imaging findings, discussed the case with the resident(s), and reviewed entered orders. I agree with the plan of care as outlined in this note. Time Spent: [address] Katelin MD
[2025-01-11] MEDS: INSULIN GLARGINE (Lantus) 5 UNIT/0.05 ML (PER 5 UNITS) 10 UNIT SC (16:05)
[2025-01-11] MEDS: INSULIN LISPRO (AdmeLOG) 1 UNIT/0.01 ML UNIT 5 UNIT SC (16:06)
--- NOTE | 2025-01-11 17:29 | PC.NURSE ---
Dr. Mcintyre says to not give ozempic injection
== END 2025-01-11 18:42 | disposition home or self-care (01) | DRG 683 ==
LOC: SERX 21:03 → S3NX 01-08 08:38 → SERHOLD 01-14 06:32
PROVIDERS: Nurse Practitioner Family; Student in an Organized Health Care Education/Training Program; Admitting Provider Student in an Organized Health Care Education/Training Program; Emergency Provider Emergency Medicine; PCP Family Medicine; Visit Provider Student in an Organized Health Care Education/Training Program
DX: N17.9 Acute kidney failure, unspecified (principal); I13.0 Hypertensive heart and chronic kidney disease with heart failure and stage 1 through stage 4 chronic kidney disease, or unspecified chronic kidney disease; I50.32 Chronic diastolic (congestive) heart failure; E11.22 Type 2 diabetes mellitus with diabetic chronic kidney disease; N18.32 Chronic kidney disease, stage 3b; D63.1 Anemia in chronic kidney disease; N39.3 Stress incontinence (female) (male); R74.01 Elevation of levels of liver transaminase levels; Z86.73 Personal history of transient ischemic attack (TIA), and cerebral infarction without residual deficits; Z79.4 Long term (current) use of insulin; Z79.899 Other long term (current) drug therapy; Z90.710 Acquired absence of both cervix and uterus
CPT/HCPCS: 36415; 71046; 76700; 80048; 80053; 81001; 82570; 83036; 83735; 83880; 84156; 84300; 84443; 84484; 85025; 85610; 87811; 93005; 93306; 93971; 96374; 99285; G0378; J1644; J1815; J1938; J1940; J2405; A9270

== ENCOUNTER → 2025-01-24 | Outpatient (CLI) | payer MEDICARE, MEDICAID, SELFPAY ==
[2025-01-24 16:11] LABS: Basophils # (Auto) 0.1 Thou/mm3 (0.0-0.2); Basophils % (Auto) 1 % (0-2.5); Eosinophils # (Auto) 0.2 Thou/mm3 (0.0-0.5); Eosinophils % (Auto) 2 % (0-10); Hematocrit 36.1 % (36.0-46.0); Hemoglobin 12.2 g/dL (12.0-16.0); Immature Granulocytes % (Auto) 0 % (0-0); Immature Granulocytes Auto 0.03 Thou/mm3 (0.00-0.00); Lymphocytes # (Auto) 3.2 Thou/mm3 (1.0-4.8); Lymphocytes % (Auto) 38 % (10-50); Mean Corpuscular HGB Conc 33.8 g/dl (31.0-37.0); Mean Corpuscular Hemoglobin 32.4 pg (25.0-35.0); Mean Corpuscular Volume 96 fL (80-100); Monocytes # (Auto) 0.9 Thou/mm3 (0.0-0.8); Monocytes % (Auto) 10 % (0-12); Neutrophils % (Auto) 48 % (37-80); Nucleated Red Blood Cell % 0 /100 WBC (0); Platelet Count 191 Thou/mm3 (140-440); RDW Standard Deviation 57.3 fL (36.4-46.3); Red Blood Count 3.77 Miln/mm3 (4.00-5.20); White Blood Count 8.3 Thou/mm3 (3.6-11.0)
[2025-01-24 16:22] LABS: Glucose Estimated Average 137 mg/dL (80-131); Hemoglobin A1C 6.4 % Hgb (4.8-6.0)
[2025-01-24 16:34] LABS: B-Type Natriuretic Peptide < 20 pg/mL (0-100)
[2025-01-24 16:39] LABS: Alanine Aminotransferase 64 U/L (10-49); Albumin/Globulin Ratio 1.3 (1.2-2.2); Alkaline Phosphatase 106 U/L (46-116); Anion Gap 11 (7-16); Aspartate Amino Transferase 111 U/L (0-34); BUN/Creatinine Ratio 29 Ratio (12-20); Bilirubin,Total 0.6 mg/dL (0.3-1.2); Blood Urea Nitrogen 79 mg/dL (9-23); Calcium 8.7 mg/dL (8.3-10.6); Calcium (Corrected) 8.7 mg/dL (8.5-10.1); Carbon Dioxide 23.5 mMol/L (20.0-31.0); Chloride 105 mMol/L (98-107); Creatinine (Component) 2.7 mg/dL (0.6-1.3); Glucose 84 mg/dL (74-106); Osmolality,Calculated 300 (275-295); Potassium 4.7 mMol/L (3.4-5.1); Sodium 139 mMol/L (136-145); Thyroid Stimulating Hormone 0.64 uIU/mL (0.55-4.78); eGFR 17 See Note
== END | disposition home or self-care (01) ==
LOC: COPL 15:40
PROVIDERS: PCP Internal Medicine; Referring Provider Internal Medicine; Visit Provider Internal Medicine
DX: I11.0 Hypertensive heart disease with heart failure (principal); I50.32 Chronic diastolic (congestive) heart failure; E11.65 Type 2 diabetes mellitus with hyperglycemia; R74.01 Elevation of levels of liver transaminase levels
CPT/HCPCS: 36415; 80053; 83036; 83880; 84443; 85025

== ENCOUNTER → 2025-02-06 | Outpatient (CLI) | payer MEDICARE, MEDICAID, SELFPAY ==
[2025-02-06 16:36] LABS: Basophils % (Auto) 0 % (0-2.5); Eosinophils # (Auto) 0.2 Thou/mm3 (0.0-0.5); Eosinophils % (Auto) 3 % (0-10); Hematocrit 33.1 % (36.0-46.0); Hemoglobin 11.2 g/dL (12.0-16.0); Immature Granulocytes % (Auto) 0 % (0-0); Immature Granulocytes Auto 0.02 Thou/mm3 (0.00-0.00); Lymphocytes # (Auto) 2.4 Thou/mm3 (1.0-4.8); Lymphocytes % (Auto) 35 % (10-50); Mean Corpuscular HGB Conc 33.8 g/dl (31.0-37.0); Mean Corpuscular Hemoglobin 32.1 pg (25.0-35.0); Mean Corpuscular Volume 95 fL (80-100); Monocytes # (Auto) 0.6 Thou/mm3 (0.0-0.8); Monocytes % (Auto) 9 % (0-12); Neutrophils # (Auto) 3.5 Thou/mm3 (1.8-7.7); Neutrophils % (Auto) 52 % (37-80); Nucleated Red Blood Cell % 0 /100 WBC (0); Platelet Count 139 Thou/mm3 (140-440); RDW Standard Deviation 56.4 fL (36.4-46.3); Red Blood Count 3.49 Miln/mm3 (4.00-5.20); White Blood Count 6.8 Thou/mm3 (3.6-11.0)
[2025-02-06 16:57] LABS: Alanine Aminotransferase 73 U/L (10-49); Albumin, Serum 3.9 gm/dL (3.4-4.8); Albumin/Globulin Ratio 1.6 (1.2-2.2); Alkaline Phosphatase 95 U/L (46-116); Anion Gap 12 (7-16); Aspartate Amino Transferase 125 U/L (0-34); BUN/Creatinine Ratio 34 Ratio (12-20); Bilirubin,Total 0.6 mg/dL (0.3-1.2); Blood Urea Nitrogen 67 mg/dL (9-23); Calcium 8.9 mg/dL (8.3-10.6); Carbon Dioxide 24.3 mMol/L (20.0-31.0); Chloride 106 mMol/L (98-107); Globulin 2.5 gm/dL (2.3-3.5); Glucose 185 mg/dL (74-106); Osmolality,Calculated 307 (275-295); Potassium 4.1 mMol/L (3.4-5.1); Sodium 142 mMol/L (136-145); Total Protein 6.4 gm/dL (5.7-8.2); eGFR 24 See Note
== END | disposition home or self-care (01) ==
LOC: COPL 14:44
PROVIDERS: PCP Family Medicine; Referring Provider Internal Medicine; Visit Provider Internal Medicine
DX: N18.2 Chronic kidney disease, stage 2 (mild) (principal); R60.9 Edema, unspecified
CPT/HCPCS: 36415; 80053; 85025

== ENCOUNTER → 2025-03-18 | Outpatient (CLI) | payer MEDICARE, MEDICAID, SELFPAY ==
[2025-03-18 14:00] LABS: Collection Type, Urine Clean Catch
[2025-03-18 14:54] LABS: Parathyroid Hormone Intact 171.2 pg/ml (18.5-88.0)
[2025-03-18 14:56] LABS: Albumin, Serum 3.5 gm/dL (3.4-4.8); Anion Gap 12 (7-16); BUN/Creatinine Ratio 18 Ratio (12-20); Blood Urea Nitrogen 23 mg/dL (9-23); Calcium 9.1 mg/dL (8.3-10.6); Calcium (Corrected) 9.5 mg/dL (8.5-10.1); Carbon Dioxide 24.4 mMol/L (20.0-31.0); Chloride 109 mMol/L (98-107); Creatinine (Component) 1.3 mg/dL (0.6-1.3); Glucose 141 mg/dL (74-106); Osmolality,Calculated 294 (275-295); Phosphorous 3.6 mg/dL (2.4-5.1); Potassium 3.9 mMol/L (3.4-5.1); Sodium 145 mMol/L (136-145); eGFR 41 See Note
[2025-03-18 14:57] LABS: Bilirubin,Urine Negative (Negative); Blood,Urine Negative (Negative); Clarity,Urine Clear (Clear/Hazy); Color,Urine Lt-Yellow (Lt Yel-Yel); Glucose, Urine Negative (Negative); Ketones,Urine Negative (Negative); Leukocyte Esterase,Urine Positive (Negative); Nitrite,Urine Positive (Negative); PH,Urine 6.0 (5.0-7.0); Protein,Urine Negative (Neg - Trace); RBC,Urine 1 /hpf (0-3); Specific Gravity,Urine 1.012 (1.001-1.035); Squamous Epithelial Cell,Urine 2 /hpf (0-5); Urobilinogen,Urine Negative mg/dL (0.0-1.0); WBC,Urine 17 /hpf (0-5)
[2025-03-18 14:58] LABS: Vitamin D 25 Hydroxy Total 54.8 ng/mL (7.3-40.2)
[2025-03-18 16:01] LABS: Basophils # (Auto) 0.0 Thou/mm3 (0.0-0.2); Basophils % (Auto) 0 % (0-2.5); Eosinophils # (Auto) 0.1 Thou/mm3 (0.0-0.5); Eosinophils % (Auto) 2 % (0-10); Hematocrit 33.6 % (36.0-46.0); Hemoglobin 11.1 g/dL (12.0-16.0); Immature Granulocytes Auto 0.01 Thou/mm3 (0.00-0.00); Lymphocytes # (Auto) 1.3 Thou/mm3 (1.0-4.8); Lymphocytes % (Auto) 21 % (10-50); Mean Corpuscular HGB Conc 33.0 g/dl (31.0-37.0); Mean Corpuscular Hemoglobin 32.0 pg (25.0-35.0); Mean Corpuscular Volume 97 fL (80-100); Monocytes # (Auto) 0.6 Thou/mm3 (0.0-0.8); Monocytes % (Auto) 11 % (0-12); Neutrophils # (Auto) 3.8 Thou/mm3 (1.8-7.7); Neutrophils % (Auto) 65 % (37-80); Nucleated Red Blood Cell # 0.00 Thou/mm3 (0.00-0.00); Nucleated Red Blood Cell % 0 /100 WBC (0); Platelet Count 142 Thou/mm3 (140-440); RDW Standard Deviation 58.5 fL (36.4-46.3); Red Blood Count 3.47 Miln/mm3 (4.00-5.20); White Blood Count 5.9 Thou/mm3 (3.6-11.0)
== END | disposition home or self-care (01) ==
LOC: COPL 13:30
PROVIDERS: PCP Internal Medicine; Referring Provider Internal Medicine Nephrology; Visit Provider Internal Medicine Nephrology
DX: I50.9 Heart failure, unspecified (principal); E55.9 Vitamin D deficiency, unspecified
CPT/HCPCS: 36415; 80069; 81001; 82306; 83970; 85025

== ENCOUNTER → 2025-04-15 | Outpatient (CLI) | payer MEDICARE, MEDICAID, SELFPAY ==
--- NOTE | 2025-04-15 09:20 | XR_ITS ---
Examination: Bone densitometry Date and time of exam:April 15, 2025, 0925 hours INDICATIONS: Hysterectomy age 40, personal history osteoporosis Technique: Lumbar spine and hip total bone mineralization values of an calculated. Peak reference and age match control results have been displayed. Findings: Lumbar spine total bone mineralization is0.996 gm/cm2. This is 0.5 standard deviations below peak reference. This is 2.3 standard deviations above age-matched controls. Hip total bone mineralization is 0.760 gm/cm2 This is 1.5 standard deviations below peak reference. This is 0.7 standard deviations above age-matched controls Impression: There is normal mineralization based on lumbar spine measurements. There is osteopenia based on hip measurements Lumbar mineralization is decreased 4.9% compared with April 19, 2021 Hip mineralization is decreased 15.1% compared with April 19, 2021
== END | disposition home or self-care (01) ==
LOC: CDIM 09:05
PROVIDERS: Referring Provider Internal Medicine; Visit Provider Internal Medicine
DX: M85.89 Other specified disorders of bone density and structure, multiple sites (principal)
CPT/HCPCS: 77080

== ENCOUNTER 2025-05-02 06:48 | Day surgery (SDC) | payer MEDICARE, MEDICAID, SELFPAY ==
[2025-04-30 14:02] VITALS: BMI 32.3
--- NOTE | 2025-05-01 07:00 | EKG_ITS ---
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
[2025-05-01 11:49] LABS: Basophils # (Auto) 0.0 Thou/mm3 (0.0-0.2); Basophils % (Auto) 0 % (0-2.5); Eosinophils # (Auto) 0.1 Thou/mm3 (0.0-0.5); Eosinophils % (Auto) 1 % (0-10); Hematocrit 36.0 % (36.0-46.0); Hemoglobin 11.9 g/dL (12.0-16.0); Immature Granulocytes Auto 0.02 Thou/mm3 (0.00-0.00); Lymphocytes # (Auto) 1.9 Thou/mm3 (1.0-4.8); Lymphocytes % (Auto) 27 % (10-50); Mean Corpuscular HGB Conc 33.1 g/dl (31.0-37.0); Mean Corpuscular Hemoglobin 29.5 pg (25.0-35.0); Mean Corpuscular Volume 89 fL (80-100); Monocytes # (Auto) 0.7 Thou/mm3 (0.0-0.8); Monocytes % (Auto) 9 % (0-12); Neutrophils # (Auto) 4.6 Thou/mm3 (1.8-7.7); Neutrophils % (Auto) 63 % (37-80); Nucleated Red Blood Cell # 0.00 Thou/mm3 (0.00-0.00); Nucleated Red Blood Cell % 0 /100 WBC (0); Platelet Count 139 Thou/mm3 (140-440); RDW Standard Deviation 50.9 fL (36.4-46.3); Red Blood Count 4.03 Miln/mm3 (4.00-5.20); White Blood Count 7.3 Thou/mm3 (3.6-11.0)
[2025-05-01 12:05] LABS: Anion Gap 9 (7-16); BUN/Creatinine Ratio 29 Ratio (12-20); Blood Urea Nitrogen 60 mg/dL (9-23); Calcium 8.9 mg/dL (8.3-10.6); Carbon Dioxide 24.8 mMol/L (20.0-31.0); Chloride 107 mMol/L (98-107); Creatinine (Component) 2.1 mg/dL (0.6-1.3); Estimated Creatinine Clearance 17.9 mL/min (>60); Glucose 143 mg/dL (74-106); INR 1.2 (0.9-1.3); Osmolality,Calculated 300 (275-295); Partial Thromboplastin Time 29.1 Seconds (22.0-36.0); Potassium 4.2 mMol/L (3.4-5.1); Prothrombin Time 12.8 Seconds (9.0-12.2); Sodium 141 mMol/L (136-145); eGFR 23 See Note
[2025-05-02] VITALS (16 sets, daily range): BP systolic 102–140; BP diastolic 49–89; PULSE 59–73; RESP 13–21; TEMP 36.4–36.6; O2SAT 93–97
[2025-05-02] MEDS: SODIUM CHLORIDE 0.45 % 500 ML 100 ML IV (08:43)
--- NOTE | 2025-05-02 10:26 | PC.NURSE ---
0831 patient is awake, alert, breathing unlabored, s/p LHC by Dr. Loya, TR band present to right wrist, no bleeding or hematoma noted. patient in bay 7 for 3 hour recovery. 0835 blood glucose 51, Dr. Loya made aware, order received to give juice, no need for medication intervention at this time 0845 patient drank 250ml apple juice and 1/2 sandwich 0851 blood glucose 126, no additional intervention required 0920 breakfast tray arrived, patient eating breakfast 0930 2ml air removed from TR band since hemostasis time 0824. 1020 TR band removed, no bleeding or hematoma noted, site covered with tegaderm and coban
--- NOTE | 2025-05-02 10:30 | PC.NURSE ---
Family member Kristie called at [phone] to update on discharge time and time to hot die picker patient
--- NOTE | 2025-05-02 10:52 | PC.NURSE ---
1051 Report given to Sheri FATIMA
--- NOTE | 2025-05-02 13:18 | ESOP_ITS ---
RE: ASIYA LANG : 1940 DATE OF OPERATION: 05/02/2025 PROCEDURES PERFORMED: 1. Diagnostic left heart cardiac catheterization, selective coronary angiogram, left ventricular angiogram, CPT 54455. 2. Ultrasound-guided access of the right radial artery. 3. Conscious sedation for 30-minute duration. DIAGNOSES: Abnormal stress test, coronary artery disease, angina pectoris, shortness of breath, congestive heart failure. HISTORY AND INDICATIONS: The patient is an 84-year-old female with a history of hypertension, diabetes, hypercholesterolemia, chronic kidney disease stage IIIB, had episodes of shortness of breath, congestive heart failure symptoms and nuclear scan was abnormal. Because of recurrent chest pain, anginal pectoris, and abnormal nuclear scan, coronary angiogram was recommended to assess the patient is a candidate for coronary intervention . DESCRIPTION OF PROCEDURE: The patient was brought to the cardiac catheterization laboratory. She was given only 1 mg Versed and 50 mcg fentanyl for sedation. The right radial artery was cannulated with micropuncture technique and a 6-Libyan Glidesheath was introduced. Selective right and left coronary angiogram, left heart catheterization, and left ventricular angiogram were performed by a TIG-4 diagnostic 5-Libyan catheter and multiple views were obtained. Subsequently, TR band was applied. Hemostasis was secured. A radial cocktail was given. Coronary angiogram showed the following findings: Right coronary artery is large and dominant. It gives off PDA and posterolateral branches. All of them appeared normal. Left coronary system: The left main coronary artery is normal. Left anterior descending artery is normal. Circumflex artery is normal. HEMODYNAMICS: Left ventricular pressure is 110/10. Aortic pressure is 110/70. No gradient across the aortic valve. Left ventricular angiogram shows a normal left ventricular wall motion. Ejection fraction is 65%. SUMMARY OF FINDINGS: 1. Normal nonobstructive epicardial coronary artery disease. 2. Dominant right coronary artery disease. 3. Normal left ventricular function. RECOMMENDATIONS: The patient will be hydrated and discharged. Prognosis is excellent. She does not have any significant coronary artery disease that requires intervention. DT: 12:16:29 TT: 13:07:00 Ref: [id number] - TID: [id number] [facility]
== END 2025-05-02 12:05 | disposition home or self-care (01) ==
PROVIDERS: PCP Internal Medicine; Referring Provider Internal Medicine Cardiovascular Disease; Visit Provider Internal Medicine Cardiovascular Disease
PROC: (CPT 93458; principal; 2025-05-02 07:30)
DX: I25.118 Atherosclerotic heart disease of native coronary artery with other forms of angina pectoris (principal); I50.32 Chronic diastolic (congestive) heart failure; R94.30 Abnormal result of cardiovascular function study, unspecified; Z01.810 Encounter for preprocedural cardiovascular examination; R94.31 Abnormal electrocardiogram [ECG] [EKG]; E78.00 Pure hypercholesterolemia, unspecified; I13.0 Hypertensive heart and chronic kidney disease with heart failure and stage 1 through stage 4 chronic kidney disease, or unspecified chronic kidney disease; N18.32 Chronic kidney disease, stage 3b; E11.22 Type 2 diabetes mellitus with diabetic chronic kidney disease
CPT/HCPCS: 93458; 36415; 80048; 85025; 85610; 85730; 93005; 99152; A4649; C1769; C1887; C1894; J0153; J0168; J0282; J0461; J1643; J2250; J2312; J2371; J2405; J3010; J3490; J7030; Q9967

== ENCOUNTER 2025-05-11 17:42 | Emergency (ER) | payer MEDICARE, MEDICAID, SELFPAY ==
[2025-05-11 17:43] VITALS: BP 174/69; PULSE 66; RESP 18; TEMP 36.5; O2SAT 97
[2025-05-11 17:44] VITALS: PULSE 68; RESP 18; O2SAT 96
[2025-05-11 17:48] VITALS: BMI 31.7
--- NOTE | 2025-05-11 17:53 | EKG_ITS ---
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
--- NOTE | 2025-05-11 17:58 | PD.EDADULT ---
ED General RME/HPI General Chief complaint: Altered Mental Status Stated complaint: AMS Time Seen by Provider: 05/11/25 17:53 Arrival date/time: 05/11/25 17:42 CC: Hypoglycemia HPI patient presents to the ER via EMS who reports manage finding her holding her steering well with a car stopped in the middle of the road. EMS found her blood sugar at 40. EMS r reports giving her 250 mL of D10. Since then the patient has been awake alert oriented she is has no specific complaints EMS reports stable vault vital signs otherwise. Patient has been taking insulin in the morning but not eating full meals as required secondary to family illness who remains hospitalized and commuting [id number] on a regular basis. Related Data Home Medications ?Medication ?Instructions ?Recorded ?Confirmed amlodipine 10 mg tablet 10 mg PO QDAY 02/21/18 05/02/25 pantoprazole 40 mg tablet,delayed 40 mg PO QDAY 02/21/18 05/02/25 release allopurinol 100 mg tablet 100 mg PO QDAY 04/09/21 05/02/25 insulin human U-100 NPH-regulr 34 unit subcut QMORNING 04/09/21 05/02/25 70-30 mix 100 unit/mL subcutaneous susp (Novolin 70/30 U-100 Insulin) aspirin 81 mg tablet 81 mg PO QDAY 05/02/25 05/02/25 atorvastatin 80 mg tablet 80 mg PO DAILY 05/02/25 05/02/25 Allergies Allergy/AdvReac Type Severity Reaction Status Date / Time No Known Allergies Allergy Verified 05/11/25 17:49 Review of Systems Review of Systems Narrative Review of Systems: GEN: No fever, no chills, no weight loss EYES: No discharge, no visual changes, no pain HEENT: No ear pain, no congestion, no sore throat PULM: No shortness of breath, no cough, no congestion CV: No chest pain, no dyspnea on exertion, no palpitations GI: No nausea, no vomiting, no diarrhea, no pain, no constipation : No frequency, no urgency, no dysuria MUSC/SKEL: No joint pain, no back pain SKIN: No rash PSYCH: No hallucinations, no depression HEME/LYMPH: No easy bleeding or bruising tendencies NEURO: No weakness, no headache Past Medical History Past Medical History NEUROLOGIC: Positive Neurological Disorders and Cerebrovascular Accident; Negative Seizures CARDIAC: Positive Cardiac Disorders, Edema and Hypertension; Negative Myocardial Infarction, Cardiac Arrhythmia, Atrial Fibrillation, Coronary Artery Disease, Hypercholesterolemia or Congestive Heart Failure RESPIRATORY: Positive Tuberculosis; Negative Chronic Obstructive Pulmonary Disease (COPD) GASTROINTESTINAL: Positive Obesity; Negative Gastrointestinal Disorders or Gastroesophageal Reflux Disease GENITOURINARY: Positive Genitourinary Disorders; Negative Renal Disease REPRODUCTIVE: Positive Previous Pregnancies; Negative Breast Cancer MUSCULOSKELETAL: Positive Musculoskeletal Disorders, Arthritis, Osteoporosis, Gout and Degenerative Joint Disease ENT: Positive Cataracts ENDOCRINE: Positive Endocrine Disorders and Diabetes Mellitus Type 2; Negative Diabetes Mellitus Type 1, Hyperthyroidism or Parathyroid Disease HEMATOLOGIC: Negative Blood Disorders, Anemia or Clotting Problems PSYCHO/SOCIAL: Positive Anxiety OTHER HISTORY: Positive Hospitalization, Falls, Chicken Pox, Measles and Mumps; Negative Autoimmune Disease, Shingles, Blood Transfusions, Anesthesia Reactions, Organ Transplant, Cancer or Breast Cancer Family History FAMILY HISTORY: Positive Family Cardiac Disorders and Family Cancer; Negative Family Anesthesia Reaction Surgical History SURGICAL: Positive Angiogram, Ear Surgery, Eye Surgery, Joint Replacement, Hysterectomy and Tubal Ligation; Negative Pacemaker or Organ Transplant Social History SMOKING STATUS: Never smoker ED Exam Narrative Physical exam: [General: Obese not in any acute distress Head normocephalic HEENT: Within acceptable limits Neck is supple nontender Chest equal chest rise nontender to palpation Respiratory: Clear to auscultation no wheezes crackles or rubs CV: Rate rhythm is regular no murmurs rubs or clicks Abdomen is distended secondary to body habitus soft nontender no masses positive bowel sounds all 4 quadrants Back: No CVA tenderness no spinous process tenderness from cervical spine thoracic and lumbar spine Skin: Intact no petechiae rash induration ulceration or crepitus Extremities: Moving all extremity against resistance cap refill less than 2 seconds neurosensory intact. No lower extremity edema's. Neuro: Awake alert oriented x3 Glascow coma 15 no focal deficits] Course Course Course Narrative: Reassessment of this patient at 1925, the patient is sleeping but easily arousable, blood glucose every 30 minutes is gone respectively from 1 34-1 100-108 after eating a full sandwich. At this time if we can find family members I feel that this blood glucose has stabilized out we will discharge her home with family members care. At 2030 glucose levels 140 and comfortable discharging this patient home Quality Measures none Orders Category Date Time Status EKG (ED ONLY) *Do not use* NOW Care 05/11/25 17:53 Completed EKG (ED Only) Stat Exams 05/11/25 17:53 Draft CBC Stat Lab 05/11/25 18:00 Completed Comprehensive Metabolic Panel Stat Lab 05/11/25 18:00 Completed Drug Screen,Urine Stat Lab 05/11/25 20:24 Completed LDH (Lactate Dehydrogenase) Stat Lab 05/11/25 18:00 Completed Magnesium Stat Lab 05/11/25 18:00 Completed Troponin I Stat Lab 05/11/25 18:00 Completed Urinalysis, C/S if Indicated Stat Lab 05/11/25 20:24 Completed Urine Culture Stat Lab 05/11/25 20:24 Received Vital Signs Vital signs: Vital Signs Temperature 97.7 F 05/11/25 17:43 Pulse Rate 66 05/11/25 17:43 Respiratory Rate 18 05/11/25 17:43 Blood Pressure 174/69 H 05/11/25 17:43 Pulse Oximetry (%) 97 05/11/25 17:43 Oxygen Delivery Method Room Air 05/11/25 17:43 Discharge Plan Plan Patient Disposition: HOME (Self Care) Patient condition on transfer: Stable Prescriptions/Referrals Prescriptions/Med Rec: No Action amlodipine 10 mg Tablet 10 mg PO QDAY pantoprazole 40 mg Tablet,Delayed Release (Dr/Ec) 40 mg PO QDAY allopurinol 100 mg tablet 100 mg PO QDAY Novolin 70/30 U-100 Insulin 100 unit/mL (70-30) suspension 34 unit SUBCUT QMORNING Patient Comments: inject 32 units subcutaneously twice a day aspirin 81 mg tablet 81 mg PO QDAY atorvastatin 80 mg tablet 80 mg PO DAILY Patient Comments: take 1 tablet by mouth every NIGHT Referrals: No Primary/Family,Physician [Primary Care Provider] - In 1 week Problem List Clinical Impression: Hypoglycemia Patient/Caregiver Discharge Instructions Other Activity Instructions:: Rest, make sure you eat plenty of food after taking your insulin. Try not to stress yourself too much. If there is a return of symptoms return to the emergency room immediately for further evaluation. Education Materials: Hypoglycemia (Low Blood Sugar) Print Language: Swazi Stand Alone Forms: Trudi Award Info., Work/School Release, Patient Portal Info Letter PA/ELECTRO OPTICAL ENGINEER Supervising Physician PA/ELECTRO OPTICAL ENGINEER Supervising Physician: Bayron Whitney ENP MDM EKG EKG not done Lab Interpretation Lab(s) interpretation(s): CBC shows no leukocytosis H&H of 10.6 and 32.6 respectively no thrombocytopenia note: Patient's chronically anemic. CMP shows a chloride of 117 CO2 of 16.9 gap of 9 BUN of 1.9 creatinine of 1.1 glucose of 153. Mag of 1.6 no transaminitis or T. bili elevation. Troponin is negative.
[2025-05-11 18:38] LABS: Basophils # (Auto) 0.0 Thou/mm3 (0.0-0.2); Basophils % (Auto) 0 % (0-2.5); Eosinophils # (Auto) 0.0 Thou/mm3 (0.0-0.5); Eosinophils % (Auto) 1 % (0-10); Hematocrit 32.6 % (36.0-46.0); Hemoglobin 10.6 g/dL (12.0-16.0); Immature Granulocytes Auto 0.02 Thou/mm3 (0.00-0.00); Lymphocytes # (Auto) 0.9 Thou/mm3 (1.0-4.8); Lymphocytes % (Auto) 18 % (10-50); Mean Corpuscular HGB Conc 32.5 g/dl (31.0-37.0); Mean Corpuscular Hemoglobin 29.3 pg (25.0-35.0); Mean Corpuscular Volume 90 fL (80-100); Monocytes # (Auto) 0.5 Thou/mm3 (0.0-0.8); Monocytes % (Auto) 9 % (0-12); Neutrophils # (Auto) 3.8 Thou/mm3 (1.8-7.7); Neutrophils % (Auto) 72 % (37-80); Nucleated Red Blood Cell # 0.00 Thou/mm3 (0.00-0.00); Nucleated Red Blood Cell % 0 /100 WBC (0); Platelet Count 172 Thou/mm3 (140-440); RDW Standard Deviation 52.5 fL (36.4-46.3); Red Blood Count 3.62 Miln/mm3 (4.00-5.20); White Blood Count 5.2 Thou/mm3 (3.6-11.0)
--- NOTE | 2025-05-11 18:45 | PC.NURSE ---
REPORT RECEIVED FROM EMS RN, PATIENT WAS BROUGHT TO ED DUE TO ALTERED MENTAL STATUS. PER EMS PATIENT WAS FOUND IN MIDDLE OF INTERSECTION WITH CAR IN PARK AND HANDS ON WHEEL NOT ABLE TO ANSWER QUESTIONS APPROPRIATELY. PATIENT'S BS WAS 42, D50 GIVEN AND PATIENT WAS BACK TO BASELINE GCS OF 15. PATIENT RESTING AT TIME OF ARRIVAL. SOUND DESIGNER MILNER AT BEDSIDE TO ASSESS PATIENT.
[2025-05-11 18:58] LABS: Alanine Aminotransferase 47 U/L (10-49); Albumin, Serum 3.2 gm/dL (3.4-4.8); Albumin/Globulin Ratio 1.5 (1.2-2.2); Alkaline Phosphatase 107 U/L (46-116); Anion Gap 9 (7-16); Aspartate Amino Transferase 93 U/L (0-34); BUN/Creatinine Ratio 17 Ratio (12-20); Bilirubin,Total 0.5 mg/dL (0.3-1.2); Blood Urea Nitrogen 19 mg/dL (9-23); Calcium 8.6 mg/dL (8.3-10.6); Calcium (Corrected) 9.2 mg/dL (8.5-10.1); Carbon Dioxide 16.7 mMol/L (20.0-31.0); Chloride 117 mMol/L (98-107); Creatinine (Component) 1.1 mg/dL (0.6-1.3); Estimated Creatinine Clearance 36.2 mL/min (>60); Globulin 2.2 gm/dL (2.3-3.5); Glucose 153 mg/dL (74-106); LDH (Lactate Dehydrogenase) 192 U/L (120-246); Magnesium 1.6 mg/dL (1.6-2.6); Osmolality,Calculated 290 (275-295); Potassium 3.9 mMol/L (3.4-5.1); Sodium 143 mMol/L (136-145); Total Protein 5.4 gm/dL (5.7-8.2); Troponin I < 0.002 ng/mL (0.0-0.045); eGFR 50 See Note
[2025-05-11 19:21] VITALS: BP 160/57; PULSE 49; RESP 20; TEMP 37.1; O2SAT 96
[2025-05-11 20:53] LABS: Collection Type, Urine Clean Catch
[2025-05-11 20:57] VITALS: PULSE 51; RESP 19; TEMP 36.9; O2SAT 100
[2025-05-11 21:03] LABS: Bacteria,Urine Rare; Bilirubin,Urine Negative (Negative); Blood,Urine Negative (Negative); Clarity,Urine Clear (Clear/Hazy); Color,Urine Lt-Yellow (Lt Yel-Yel); Glucose, Urine 3+ (Negative); Ketones,Urine Negative (Negative); Leukocyte Esterase,Urine Positive (Negative); Nitrite,Urine Positive (Negative); PH,Urine 6.0 (5.0-7.0); Protein,Urine Negative (Neg - Trace); RBC,Urine 1 /hpf (0-3); Specific Gravity,Urine 1.010 (1.001-1.035); Squamous Epithelial Cell,Urine 5 /hpf (0-5); Urobilinogen,Urine Negative mg/dL (0.0-1.0); WBC,Urine 3 /hpf (0-5)
[2025-05-11 21:05] LABS: Amphetamine/Methamp Scrn,U Negative (Negative); Barbiturate Screen,Urine Negative (Negative); Benzodiazepines Screen,Urine Negative (Negative); Benzoylecgonine Screen, Ur Negative (Negative); Fentanyl Screen,Urine Negative (Negative); Opiate Screen,Urine Negative (Negative); THC Screen,Urine Negative (Negative)
[2025-05-11 21:11] LABS: Culture Indicated,Urine Yes
== END 2025-05-11 21:00 | disposition home or self-care (01) ==
PROVIDERS: Registered Nurse General Practice; Emergency Provider Emergency Medicine
DX: E11.649 Type 2 diabetes mellitus with hypoglycemia without coma (principal); E16.A1 Hypoglycemia level 1; I45.10 Unspecified right bundle-branch block; I10 Essential (primary) hypertension; Z79.4 Long term (current) use of insulin
CPT/HCPCS: 36415; 80053; 80307; 81001; 83615; 83735; 84484; 85025; 87077; 87086; 87186; 93005; 99283

== ENCOUNTER → 2025-05-26 | Outpatient (CLI) | payer MEDICARE, MEDICAID, SELFPAY ==
[2025-05-26 12:20] LABS: Basophils # (Auto) 0.0 Thou/mm3 (0.0-0.2); Basophils % (Auto) 0 % (0-2.5); Eosinophils # (Auto) 0.2 Thou/mm3 (0.0-0.5); Eosinophils % (Auto) 3 % (0-10); Hematocrit 32.8 % (36.0-46.0); Hemoglobin 10.9 g/dL (12.0-16.0); Immature Granulocytes Auto 0.01 Thou/mm3 (0.00-0.00); Lymphocytes # (Auto) 2.1 Thou/mm3 (1.0-4.8); Lymphocytes % (Auto) 38 % (10-50); Mean Corpuscular HGB Conc 33.2 g/dl (31.0-37.0); Mean Corpuscular Hemoglobin 28.7 pg (25.0-35.0); Mean Corpuscular Volume 86 fL (80-100); Monocytes # (Auto) 0.7 Thou/mm3 (0.0-0.8); Monocytes % (Auto) 13 % (0-12); Neutrophils # (Auto) 2.5 Thou/mm3 (1.8-7.7); Neutrophils % (Auto) 46 % (37-80); Nucleated Red Blood Cell # 0.00 Thou/mm3 (0.00-0.00); Nucleated Red Blood Cell % 0 /100 WBC (0); Platelet Count 133 Thou/mm3 (140-440); RDW Standard Deviation 51.3 fL (36.4-46.3); Red Blood Count 3.80 Miln/mm3 (4.00-5.20); White Blood Count 5.5 Thou/mm3 (3.6-11.0)
[2025-05-26 12:25] LABS: Alanine Aminotransferase 67 U/L (10-49); Albumin, Serum 3.4 gm/dL (3.4-4.8); Albumin/Globulin Ratio 1.5 (1.2-2.2); Alkaline Phosphatase 118 U/L (46-116); Anion Gap 9 (7-16); Aspartate Amino Transferase 120 U/L (0-34); BUN/Creatinine Ratio 28 Ratio (12-20); Bilirubin,Total 0.9 mg/dL (0.3-1.2); Blood Urea Nitrogen 31 mg/dL (9-23); Calcium 9.0 mg/dL (8.3-10.6); Calcium (Corrected) 9.5 mg/dL (8.5-10.1); Carbon Dioxide 25.7 mMol/L (20.0-31.0); Chloride 111 mMol/L (98-107); Creatinine (Component) 1.1 mg/dL (0.6-1.3); Globulin 2.3 gm/dL (2.3-3.5); Glucose 71 mg/dL (74-106); Osmolality,Calculated 295 (275-295); Potassium 4.1 mMol/L (3.4-5.1); Sodium 146 mMol/L (136-145); Total Protein 5.7 gm/dL (5.7-8.2); eGFR 50 See Note
== END | disposition home or self-care (01) ==
LOC: COPL 11:35
PROVIDERS: PCP Family Medicine; Referring Provider Internal Medicine; Visit Provider Internal Medicine
DX: I13.0 Hypertensive heart and chronic kidney disease with heart failure and stage 1 through stage 4 chronic kidney disease, or unspecified chronic kidney disease (principal); E11.22 Type 2 diabetes mellitus with diabetic chronic kidney disease; N18.32 Chronic kidney disease, stage 3b; I50.32 Chronic diastolic (congestive) heart failure; R93.2 Abnormal findings on diagnostic imaging of liver and biliary tract
CPT/HCPCS: 36415; 80053; 85025

== ENCOUNTER → 2025-06-18 | Outpatient (CLI) | payer MEDICARE, MEDICAID, SELFPAY ==
[2025-06-18 15:10] LABS: Basophils # (Auto) 0.0 Thou/mm3 (0.0-0.2); Basophils % (Auto) 0 % (0-2.5); Eosinophils # (Auto) 0.1 Thou/mm3 (0.0-0.5); Eosinophils % (Auto) 2 % (0-10); Hematocrit 30.6 % (36.0-46.0); Hemoglobin 10.4 g/dL (12.0-16.0); Immature Granulocytes Auto 0.01 Thou/mm3 (0.00-0.00); Lymphocytes # (Auto) 1.8 Thou/mm3 (1.0-4.8); Lymphocytes % (Auto) 30 % (10-50); Mean Corpuscular HGB Conc 34.0 g/dl (31.0-37.0); Mean Corpuscular Hemoglobin 29.4 pg (25.0-35.0); Mean Corpuscular Volume 86 fL (80-100); Monocytes # (Auto) 0.7 Thou/mm3 (0.0-0.8); Monocytes % (Auto) 12 % (0-12); Neutrophils # (Auto) 3.3 Thou/mm3 (1.8-7.7); Neutrophils % (Auto) 56 % (37-80); Nucleated Red Blood Cell # 0.00 Thou/mm3 (0.00-0.00); Nucleated Red Blood Cell % 0 /100 WBC (0); Platelet Count 152 Thou/mm3 (140-440); RDW Standard Deviation 57.1 fL (36.4-46.3); Red Blood Count 3.54 Miln/mm3 (4.00-5.20); White Blood Count 5.9 Thou/mm3 (3.6-11.0)
[2025-06-18 15:25] LABS: Albumin, Serum 3.6 gm/dL (3.4-4.8); Anion Gap 11 (7-16); BUN/Creatinine Ratio 25 Ratio (12-20); Blood Urea Nitrogen 40 mg/dL (9-23); Calcium 9.0 mg/dL (8.3-10.6); Calcium (Corrected) 9.3 mg/dL (8.5-10.1); Carbon Dioxide 24.5 mMol/L (20.0-31.0); Chloride 103 mMol/L (98-107); Creatinine (Component) 1.6 mg/dL (0.6-1.3); Osmolality,Calculated 304 (275-295); Phosphorous 3.2 mg/dL (2.4-5.1); Potassium 4.6 mMol/L (3.4-5.1); Sodium 138 mMol/L (136-145); eGFR 32 See Note
[2025-06-18 15:27] LABS: Glucose 443 mg/dL (74-106)
[2025-06-18 15:38] LABS: Collection Type, Urine Clean Catch
[2025-06-18 16:41] LABS: Bilirubin,Urine Negative (Negative); Blood,Urine Negative (Negative); Clarity,Urine Clear (Clear/Hazy); Color,Urine Lt-Yellow (Lt Yel-Yel); Glucose, Urine 2+ (Negative); Ketones,Urine Negative (Negative); Leukocyte Esterase,Urine Negative (Negative); Nitrite,Urine Negative (Negative); PH,Urine 6.0 (5.0-7.0); Protein,Urine Negative (Neg - Trace); RBC,Urine 1 /hpf (0-3); Specific Gravity,Urine 1.011 (1.001-1.035); Squamous Epithelial Cell,Urine < 1 /hpf (0-5); Urobilinogen,Urine Negative mg/dL (0.0-1.0); WBC,Urine 1 /hpf (0-5)
== END | disposition home or self-care (01) ==
LOC: COPL 14:05
PROVIDERS: PCP Internal Medicine; Referring Provider Internal Medicine Nephrology; Visit Provider Internal Medicine Nephrology
DX: I10 Essential (primary) hypertension (principal)
CPT/HCPCS: 36415; 80069; 81001; 85025

== ENCOUNTER → 2025-06-23 | Outpatient (CLI) | payer MEDICARE, MEDICAID, SELFPAY ==
[2025-06-23 13:33] LABS: Alanine Aminotransferase 27 U/L (10-49); Albumin, Serum 4.2 gm/dL (3.4-4.8); Albumin/Globulin Ratio 1.4 (1.2-2.2); Alkaline Phosphatase 157 U/L (46-116); Anion Gap 12 (7-16); Aspartate Amino Transferase 66 U/L (0-34); BUN/Creatinine Ratio 26 Ratio (12-20); Bilirubin,Total 1.0 mg/dL (0.3-1.2); Blood Urea Nitrogen 42 mg/dL (9-23); Calcium 9.8 mg/dL (8.3-10.6); Calcium (Corrected) 9.8 mg/dL (8.5-10.1); Carbon Dioxide 25.5 mMol/L (20.0-31.0); Chloride 102 mMol/L (98-107); Creatinine (Component) 1.6 mg/dL (0.6-1.3); Globulin 2.9 gm/dL (2.3-3.5); Glucose 212 mg/dL (74-106); Osmolality,Calculated 294 (275-295); Potassium 4.1 mMol/L (3.4-5.1); Sodium 139 mMol/L (136-145); Total Protein 7.1 gm/dL (5.7-8.2); eGFR 32 See Note
== END | disposition home or self-care (01) ==
LOC: COPL 12:26
PROVIDERS: PCP Internal Medicine; Referring Provider Internal Medicine; Visit Provider Internal Medicine
DX: E11.22 Type 2 diabetes mellitus with diabetic chronic kidney disease (principal); N18.32 Chronic kidney disease, stage 3b; E11.65 Type 2 diabetes mellitus with hyperglycemia; I50.32 Chronic diastolic (congestive) heart failure
CPT/HCPCS: 36415; 80053

== ENCOUNTER → 2025-08-11 | Outpatient (CLI) | payer MEDICARE, MEDICAID, SELFPAY ==
[2025-08-11 14:40] LABS: Anion Gap 10 (7-16); BUN/Creatinine Ratio 29 Ratio (12-20); Blood Urea Nitrogen 38 mg/dL (9-23); Calcium 9.6 mg/dL (8.3-10.6); Carbon Dioxide 24.8 mMol/L (20.0-31.0); Chloride 109 mMol/L (98-107); Creatinine (Component) 1.3 mg/dL (0.6-1.3); Glucose 88 mg/dL (74-106); Osmolality,Calculated 294 (275-295); Potassium 4.1 mMol/L (3.4-5.1); Sodium 144 mMol/L (136-145); eGFR 41 See Note
== END | disposition home or self-care (01) ==
LOC: COPL 13:09
PROVIDERS: PCP Internal Medicine; Referring Provider Internal Medicine; Visit Provider Internal Medicine
DX: N18.31 Chronic kidney disease, stage 3a (principal)
CPT/HCPCS: 36415; 80048

== ENCOUNTER → 2025-08-18 | Outpatient (CLI) | payer MEDICARE, MEDICAID, SELFPAY ==
--- NOTE | 2025-08-18 10:00 | XR_ITS ---
Examination: MRI abdomen with intravenous contrast. MRI abdomen without intravenous contrast. Date and time of exam: August 18, 2025, 1042 hours INDICATIONS: Dilated pancreatic duct on MRI abdomen without contrast July 10, 2024 Technique: Multiple axial, sagittal and coronal sections of the abdomen obtained. Transverse images, TR 6020, TE 107. T1 weighted transverse images, TR 582, TE 9.5. T2-weighted sagittal images, TR 4000, TE 105. T2-weighted sagittal images, TR 4000, TE 5. Coronal images, TR 4210, TE 107. Axial and coronal images are obtained post 20 cc intravenous injection, gadolinium. Findings: No focal liver lesions Gallstones Gallbladder wall is not thickened Common hepatic duct 8 mm common bile duct 6 mm no common bile duct stones Pancreatic duct again is dilated, 5 mm, no pancreatic mass Moderate renal scar formation No ascites Aorta normal size Post contrast images demonstrate no abnormal enhancing liver or splenic lesions No enhancing renal mass lesion IMPRESSION: Cholelithiasis, enlarged common hepatic common bile duct but no stones depicted Pancreatic duct again dilated 5 mm, seen with prior episodes of pancreatitis No acute pancreatitis
== END | disposition home or self-care (01) ==
LOC: SMRI 10:01
PROVIDERS: PCP Internal Medicine; Referring Provider Internal Medicine; Visit Provider Internal Medicine
DX: K80.20 Calculus of gallbladder without cholecystitis without obstruction (principal); R16.0 Hepatomegaly, not elsewhere classified; K86.89 Other specified diseases of pancreas
CPT/HCPCS: 74183; A9577